=== PATIENT | male | born 1955 | race Caucasian/White ===

== ENCOUNTER 2017-01-20 15:49 | Outpatient (CLI) | payer MEDICARE, BC ==
[~2017-01-20] VITALS: Ht 167.6 cm; Wt 86.4 kg
[2017-01-20 16:07] VITALS: BP 99/69; PULSE 85; RESP 16; Ht 167.6 cm; Wt 86.4 kg
[2017-01-20] MEDS ORDERED: SEVE800T10 PO (16:27)
[2017-01-20] MEDS ORDERED: CARV12.598 PO (16:27)
[2017-01-20] MEDS ORDERED: [UNRECOGNIZED DRUG - CODE] PO (16:27)
[2017-01-20] MEDS ORDERED: CARV6.25 PO (16:27)
[2017-01-20] MEDS ORDERED: ASPI-664 PO (16:27)
--- NOTE | 2017-01-20 16:40 | PN ---
Date/Time of Note Date/Time of Note DATE: 01/20/17 TIME: 16:35 Outpatient Progress Note Chief Complaint A. fib with a high ventricular response/hypertension/pneumonia/hypertension/ anemia/CRF/insomnia HPI A. fib with high ventricular response/no chest pain, no PND orthopnea palpitation, patient was recently hospitalized, patient controlled, Hypertension/no headache or dizziness, lightheadedness, no local focal weakness, Pneumonia/patient has a pneumonia, patient on the Levaquin, no fever chills, no cough expectoration or hemoptysis, Anemia/no hematemesis melena, no ecchymoses or bruises or bleeding, CRF/patient has chronic renal failure, on hemodialysis, no nausea vomiting or pruritus, Insomnia/patient has insomnia, sleeps 1 or 2 hours a night, Review of Systems Const: No Fever, no chills, no Wt. loss, no Fatigue, normal appetite, no diaphoresis. Eyes: No pain, no discharge, no redness, no visual change, no foreign body. ENT: No pain, no bleeding, no congestion, no sore throat, no dysphagia, no discharge or rhinitis. Lymph: No adenopathy, no tender nodes, no lymphedema. Resp: No SOB, no cough, no sputum, no wheezing, no chest pain. CV: No chest pain, no palpitaions, no M[place]OR, no PND, no edema. GI: Normal appetite, no pain, no nausea, no vomiting, no diarrhea, no blood, no constipation. : No frequency, no urgency, no dysuria, no hematuria, no flank pain, no discharge, no bleeding. Musc: No bone/joint pain, no back pain, no neck pain, no knee pain, no restricted ROM. Skin: No rash, no skin lesions, no erythema, no laceration, no bruising, no pruritus. Neuro: No KENNY, no dizziness, no syncope, no seizure, no focal-weakness. Insomnia , Endo: No polyuria, no polydypsia, no dry-skin, no temp-intolerance. Psych: No hallucinations, no depression, no anxiety, no suicidal ideation. Ext: No edema, no pain, no ulcer, no weakness left upper arm AV fistula,. Physical Exam Vital Signs Date Time Temp Pulse Resp B/P Pulse Ox O2 Delivery O2 Flow Rate FiO2 01/20/17 16:07 98.6 85 16 99/69 96 Room Air General Appearance: A A 61 year-old male who appears well-developed, well- nourished, in no acute distress. HEENT: Head normocephalic, atraumatic. Pupils equal, round, reactive to light and accommodate. Sclerae are no jaundice. Nasal turbinates pink without erythema or nasal discharge. Mucous membranes pink and moist without lesions. Oropharynx clear without any exudate or discharge. NECK: Supple. Trachea midline, No thyromegaly, No cervical lymphadenopathy, No mass, No carotid bruits, No JVD, Carotid pulses 2+ bilaterally. PULMONARY: Clear to auscultaion bilaterally, No retractions, Chest expansion symmetric bilaterally, no rales, no ronchi, no dulness on percussion. CARDIAC: Normal SI and S2, iRegular rate and rythm, no murmur, gallop, or rub. GASTROINTESTINAL: Abdomen is soft, non-tender, Non Rigid, No distention, Positive bowel sounds x4 quadrants, Liver normal. SKIN: Warm, dry, no rash, no bruise, no echmosis. EXTREMITIES: Bilateral lower extremities normal, no edema, no phlabitus, pulse palpable, no contracture. Left upper arm AV fistula, MUSCULOSKELETAL: Spine Normal, Non-tender, Normal range of motion, No swelling, no deformity, no clubbing, or cyanosis, the patient has no edema to bilateral lower extremities, dorsalis pedis pulses palpable bilaterally. NEUROLOGIC: The patient is awake, alert, oriented, responding to yes/no questions appropriately, moving all extremities, cranial nerve intact, normal strenght, normal power, normal coordination, normal gait. Allergies Coded Allergies: No Known Drug Allergies (Verified Allergy, Unknown, 01/20/17) PMH A. fib/hypertension/hyp anemia/CRF/insomnia Social Hx No known allergies, Family Hx Noncontributory Assessment/Plan Impression A. fib with high ventricular response resolved/hypertension/pneumonia/anemia/CRF /insomnia Plan Patient education done, patient has all the medication, patient nicely controlled at present, Patient encouraged to follow with the primary care physician, Patient has insomnia, Ambien 5 mg p.o. at bedtime daily f 30 tablets, Medications Home Meds Reported Medications Sevelamer Hcl* (Renagel*) 800 Mg Tablet, 800 MG PO WITH MEALS, TAB 01/20/17 Diltiazem Hcl* (Cardizem*) 120 Mg Tablet, 120 MG PO Q8, TAB 01/20/17 Aspirin (Low Dose Aspirin) 81 Mg Tablet.dr, 81 MG PO DAILY, #30 TAB 01/20/17 Carvedilol* (Coreg*) 12.5 Mg Tablet, 12.5 MG PO BID, #60 TAB 01/20/17 Carvedilol* (Coreg*) 6.25 Mg Tablet, 6.25 MG PO BID, #60 TAB 01/20/17 NOELLE MCDONALD MD Jan 20, 2017 16:39
== END 2017-01-20 16:27 | disposition home or self-care (01) ==
LOC: DCC 15:49
PROVIDERS: ATTEND Internal Medicine
DX: I48.91 Unspecified atrial fibrillation (principal); J18.9 Pneumonia, unspecified organism; D64.9 Anemia, unspecified; G47.00 Insomnia, unspecified; I12.9 Hypertensive chronic kidney disease with stage 1 through stage 4 chronic kidney disease, or unspecified chronic kidney disease; N18.9 Chronic kidney disease, unspecified; Z99.2 Dependence on renal dialysis

== ENCOUNTER 2017-05-30 15:41 | Outpatient (CLI) | payer MEDICARE, BC ==
[~2017-05-30] VITALS: Ht 167.6 cm; Wt 85.0 kg
[~2017-05-30 15:41] MED LIST: ASPI-664 PO; CARV12.598 PO; CARV6.25 PO; SEVE800T10 PO; [UNRECOGNIZED DRUG - CODE] PO
[2017-05-30 15:49] VITALS: BP 139/87; PULSE 108; RESP 18; Ht 167.6 cm; Wt 85.0 kg
--- NOTE | 2017-05-30 16:11 | PN ---
Date/Time of Note Date/Time of Note DATE: 05/30/17 TIME: 16:07 Outpatient Progress Note Chief Complaint Chest pain/atrial fibrillation/CRF stage V/hypertension/hyperlipidemia/anemia/ tinnitus HPI Chest pain/patient was recently hospitalized with a chest pain, at present patient does not have any chest pain, no PND orthopnea, A. fib/patient had atrial fibrillation with a fast ventricular response, patient heart rate slightly above 100, no palpitation, no syncope, no dizziness, chronic renal failure stage V/patient has no nausea vomiting, on dialysis, Hypertension/denies any headache or dizziness, no nausea vomiting, Hyperlipidemia/no xanthoma, Anemia/no hematemesis melena, Tinnitus/patient has impaired hearing especially on the right ear, and patient also has constant tinnitus, Review of Systems Const: No Fever, no chills, no Wt. loss, no Fatigue, normal appetite, no diaphoresis. Eyes: No pain, no discharge, no redness, no visual change, no foreign body. ENT: No pain impaired hearing, and constant tinnitus,, no bleeding, no congestion, no sore throat, no dysphagia, no discharge or rhinitis. Lymph: No adenopathy, no tender nodes, no lymphedema. Resp: No SOB, no cough, no sputum, no wheezing, no chest pain. CV: No chest pain, no palpitaions, no M[place], no PND, no edema. GI: Normal appetite, no pain, no nausea, no vomiting, no diarrhea, no blood, no constipation. : No frequency, no urgency, no dysuria, no hematuria, no flank pain, no discharge, no bleeding. Musc: No bone/joint pain, no back pain, no neck pain, no knee pain, no restricted ROM. Skin: No rash, no skin lesions, no erythema, no laceration, no bruising, no pruritus. Neuro: No KENNY, no dizziness, no syncope, no seizure, no focal-weakness. Endo: No polyuria, no polydypsia, no dry-skin, no temp-intolerance. Psych: No hallucinations, no depression, no anxiety, no suicidal ideation. Ext: No edema, no pain, no ulcer, no weakness. Physical Exam Vital Signs Date Time Temp Pulse Resp B/P Pulse Ox O2 Delivery O2 Flow Rate FiO2 05/30/17 15:49 98.1 108 18 139/87 98 Room Air General Appearance: A 61 year-old male who appears well-developed, well- nourished, in no acute distress. HEENT: Head normocephalic, atraumatic. Pupils equal, round, reactive to light and accommodate. Sclerae are no jaundice. Nasal turbinates pink without erythema or nasal discharge. Mucous membranes pink and moist without lesions. Oropharynx clear without any exudate or discharge. Patient has constant tinnitus right ear, impaired hearing, NECK: Supple. Trachea midline, No thyromegaly, No cervical lymphadenopathy, No mass, No carotid bruits, No JVD, Carotid pulses 2+ bilaterally. PULMONARY: Clear to auscultaion bilaterally, No retractions, Chest expansion symmetric bilaterally, no rales, no ronchi, no dulness on percussion. CARDIAC: Normal SI and S2, IRegular rate and rythm, no murmur, gallop, or rub. GASTROINTESTINAL: Abdomen is soft, non-tender, Non Rigid, No distention, Positive bowel sounds x4 quadrants, Liver normal. SKIN: Warm, dry, no rash, no bruise, no echmosis. EXTREMITIES: Bilateral lower extremities normal, no edema, no phlabitus, pulse palpable, no contracture. MUSCULOSKELETAL: Spine Normal, Non-tender, Normal range of motion, No swelling, no deformity, no clubbing, or cyanosis, the patient has no edema to bilateral lower extremities, dorsalis pedis pulses palpable bilaterally. NEUROLOGIC: The patient is awake, alert, oriented, responding to yes/no questions appropriately, moving all extremities, cranial nerve intact, normal strenght, normal power, normal coordination, normal gait. Allergies Coded Allergies: No Known Drug Allergies (Verified Allergy, Unknown, 01/20/17) PMH No change Social Hx No change Family Hx No change Assessment/Plan Impression Chest pain resolved A. fib Chronic renal failure stage V Hypertension Hyperlipidemia Anemia Tinnitus Plan Patient education done about multiple disease, Patient has constant tinnitus in the ER, patient advised to use our Debrox clean the ear and will try to make appointment with ENT, Patient also has impaired hearing, maybe will need log check scaler to check his hearing, Control the blood pressure control the heart rate, discussed with the patient, control the cholesterol, patient has all the supply in medication, Patient encouraged to follow with the primary care physician, Medications Home Meds Reported Medications Sevelamer Hcl* (Renagel*) 800 Mg Tablet, 800 MG PO WITH MEALS, TAB 01/20/17 Diltiazem Hcl* (Cardizem*) 120 Mg Tablet, 120 MG PO Q8, TAB 01/20/17 Aspirin (Low Dose Aspirin) 81 Mg Tablet.dr, 81 MG PO DAILY, #30 TAB 01/20/17 Carvedilol* (Coreg*) 12.5 Mg Tablet, 12.5 MG PO BID, #60 TAB 01/20/17 Discontinued Reported Medications Carvedilol* (Coreg*) 6.25 Mg Tablet, 6.25 MG PO BID, #60 TAB 01/20/17 NOELLE MCDONALD MD May 30, 2017 16:11
== END 2017-05-30 16:49 | disposition home or self-care (01) ==
LOC: DCC 15:41
PROVIDERS: ATTEND Internal Medicine
DX: I12.0 Hypertensive chronic kidney disease with stage 5 chronic kidney disease or end stage renal disease (principal); N18.5 Chronic kidney disease, stage 5; E78.5 Hyperlipidemia, unspecified; D64.9 Anemia, unspecified; I48.91 Unspecified atrial fibrillation; H93.19 Tinnitus, unspecified ear
CPT/HCPCS: G0463

== ENCOUNTER 2018-08-24 12:15 | Inpatient (IN) | END 2018-08-25 18:12 | disposition home or self-care (01) | DRG 640 ==

== ENCOUNTER → 2018-08-24 | Day surgery (SDC) | END | disposition home or self-care (01) ==

== ENCOUNTER 2018-10-30 17:17 | Inpatient (IN) | payer MEDICARE, BC ==
[~2018-10-30] VITALS: Ht 167.6 cm; Wt 79.4 kg
[~2018-10-30 17:17] MED LIST changes: -ASPI-664 PO; -CARV6.25 PO; +SEVE0.8P PO; -SEVE800T10 PO; -[UNRECOGNIZED DRUG - CODE] PO
[2018-10-30 17:20] VITALS: Ht 167.6 cm; Wt 79.4 kg
[2018-10-30] MEDS ORDERED: SODIUM CHLORIDE 0.9% 1L BAG IV* STA (17:55)
[2018-10-30] MEDS ORDERED: ALBUTEROL 0.5% (NEB) 2.5 MG/0.5 ML AMP INH STA (17:58)
[2018-10-30] MEDS ORDERED: IPRATROPIUM (NEB) 0.5 MG/2.5 ML AMP INH STA (17:58)
[2018-10-30] MEDS ORDERED: METHYLPREDNISOLONE 125 MG INJ IV STA (17:58)
[2018-10-30] MEDS ORDERED: IBUPROFEN 600 MG TAB PO ONE (18:00)
[2018-10-30] MEDS ORDERED: CEFTRIAXONE 1 GM/50 ML (PMX) 50 ML IVPB ONE (18:00)
--- NOTE | 2018-10-30 18:18 | ERD ---
ER Documentation Chief Complaint Chief Complaint SOB-wheezing hx of COPD, sent by PMD to r/o PNA HPI 63-year-old man referred here by his medical office for possible pneumonia. Patient has a history of COPD and states he has had a cough, wheezing, shortness of breath, fever times 3 days. He also has end-stage kidney disease and is hemodialysis dependent, has cirrhosis and recurrent ascites as well. Patient states he has had increasing abdominal distention. He denies chest pain, no blood per rectum or melena, no vomiting or diarrhea ROS All systems reviewed and are negative except as per history of present illness. Medications Home Meds Reported Medications Sevelamer Carbonate* (Renvela*) 0.8 Gm Powd.pack, 0.8 GM PO WITH MEALS, PACKET 08/24/18 Carvedilol* (Coreg*) 12.5 Mg Tablet, 12.5 MG PO BID, #60 TAB 01/20/17 Allergies Allergies: Coded Allergies: No Known Drug Allergies (Verified Allergy, Unknown, 01/20/17) PMhx/Soc End-stage kidney disease, history of alcoholic cirrhosis and recurrent ascites, anemia, hypertension, COPD, atrial fibrillation History of Surgery: Yes (BILATERAL CATARACT, LEFT UPPER ARM FISTULA ) Anesthesia Reaction: No Hx Neurological Disorder: No Hx Respiratory Disorders: No Hx Cardiac Disorders: No Hx Psychiatric Problems: No Hx Miscellaneous Medical Probl: Yes (KIDNEY FAILURE/ESRD ON HD , LIVER FAILURE) Hx Alcohol Use: No Hx Substance Use: No Hx Tobacco Use: No FmHx Family History: diabetes Physical Exam Vitals Vital Signs Date Temp Pulse Resp B/P (MAP) Pulse Ox O2 O2 Flow FiO2 Time Delivery Rate 10/30/18 118 33 97 21 18:02 10/30/18 97.5 119 21 165/105 97 17:20 (125) Physical Exam GENERAL: Well-developed, dyspneic, afebrile HEENT: Moist mucous membranes, pink conjunctiva, no cervical spine tenderness or step-off deformities, no goiter, no jaundice or icterus, extraocular movements intact without pain. NEURO: Alert and oriented 2, patient is confused he can follow simple commands and answer simple questions, no focal deficits or facial asymmetry, moving all extremities CARDIAC: Tachycardic and regular, no murmurs rubs or gallops LUNGS: Poor breath sounds bilaterally, crackles bilaterally, scattered wheezes ABDOMEN: Soft protuberant abdomen without guarding or rigidity SKIN: Warm and dry to touch, no abrasions, contusions, or hematomas, no lacerations, no ecchymosis, no target lesions, and without ulcers EXTREMITIES: No clubbing cyanosis, 1+ pitting edema in the lower extremities bilaterally, calves are bilaterally symmetrical, no Homans sign, no popliteal cord sign. Distal pulses equal and bilateral PSYCH: Confused otherwise calm Result Diagram: 10/30/18182110/30/181821 Results 24 hrs Laboratory Tests Test 10/30/18 18:22 10/30/18 18:23 White Blood Count 5.1 10^3/ul Red Blood Count 3.78 10^6/ul Hemoglobin 10.9 g/dl Hematocrit 34.2 % Mean Corpuscular Volume 90.5 fl Mean Corpuscular Hemoglobin 28.8 pg Mean Corpuscular Hemoglobin Concent 31.9 g/dl Red Cell Distribution Width 15.7 % Platelet Count 83 10^3/UL Mean Platelet Volume 10.5 fl Immature Granulocytes % 0.600 % Neutrophils % 86.9 % Lymphocytes % 6.8 % Monocytes % 5.3 % Eosinophils % 0.0 % Basophils % 0.4 % Nucleated Red Blood Cells % 0.0 /100WBC Immature Granulocytes # 0.030 10^3/ul Neutrophils # 4.5 10^3/ul Lymphocytes # 0.4 10^3/ul Monocytes # 0.3 10^3/ul Eosinophils # 0.0 10^3/ul Basophils # 0.0 10^3/ul Nucleated Red Blood Cells # 0.0 10^3/ul Prothrombin Time 13.8 Sec Prothrombin Time Ratio 1.1 INR International Normalized Ratio 1.05 Activated Partial Thromboplast Time 31.6 Sec Sodium Level 140 mmol/L Potassium Level 6.0 mmol/L Chloride Level 97 mmol/L Carbon Dioxide Level 25 mmol/L Anion Gap 18 Blood Urea Nitrogen 83 mg/dl Creatinine 9.15 mg/dl Est Glomerular Filtrat Rate mL/min 6 mL/min Glucose Level 97 mg/dl Calcium Level 7.3 mg/dl Total Bilirubin 0.0 mg/dl Direct Bilirubin 0.00 mg/dl Indirect Bilirubin 0.0 mg/dl Aspartate Amino Transf (AST/SGOT) 31 IU/L Alanine Aminotransferase (ALT/SGPT) 26 IU/L Alkaline Phosphatase 112 IU/L Ammonia < 9 umol/l Troponin I 0.013 ng/ml B-Type Natriuretic Peptide Pending Total Protein 6.3 g/dl Albumin 3.6 g/dl Globulin 2.70 g/dl Albumin/Globulin Ratio 1.33 Lipase 179 U/L POC Venous Lactate 1.4 mmol/L Current Medications Medications Dose Sig/[place]gett Start Time Status Last (Trade) Ordered Route PRN Stop Time Admin Dose Reason Admin Sodium 1,000 ml BOLUS OVER 2 10/30/18 DC 10/30/18 Chloride HOURS STAT 17:55 18:12 (NS) IV* 10/30/18 17:59 Albuterol 10 mg ONCE STAT 10/30/18 DC 10/30/18 (Proventil INH 17:58 18:02 0.5% (Neb)) 10/30/18 17:59 Ipratropium 1 mg ONCE STAT 10/30/18 DC 10/30/18 [place] INH 17:58 18:02 (Atrovent 10/30/18 0.02% 17:59 (Neb)) 125 mg ONCE STAT 10/30/18 DC 10/30/18 Methylprednis IV 17:58 18:11 olone Sodium 10/30/18 Succinate 17:59 (Solu-Medrol) Ibuprofen 600 mg ONCE ONCE 10/30/18 DC 10/30/18 (Motrin) PO 18:00 18:12 10/30/18 18:01 Ceftriaxone 50 ml @ ONCE ONCE 10/30/18 DC 10/30/18 Sodium 100 mls/hr IVPB 18:00 18:12 10/30/18 18:29 Azithromycin 250 ml @ ONCE ONCE 10/30/18 10/30/18 250 mls/hr IVPB 18:30 18:50 10/30/18 19:29 Lactulose 20 gm ONCE ONCE 10/30/18 DC 10/30/18 (Enulose) PO 18:30 18:48 10/30/18 18:31 Oseltamivir 150 mg ONCE ONCE 10/30/18 Phosphate PO 19:30 (Tamiflu) 10/30/18 19:31 Dextrose 50 ml ONCE STAT 10/30/18 DC (D50w IV 19:19 Syringe) 10/30/18 19:21 Insulin 10 unit ONCE STAT 10/30/18 DC Human IVP 19:19 Regular 10/30/18 (Humulin R) 19:21 Dextrose ONCE PRN 10/30/18 (D50w IV DECREASED 19:30 Syringe) GLUCOSE Furosemide 20 mg ONCE ONCE 10/30/18 (Lasix) IV 19:30 10/30/18 19:31 Procedures/MDM IV line was established patient was placed on school lunch monitor rhythm strip revealed a narrow complex tachycardia at 110 bpm with upright P and T waves. Patient was afebrile, although blood and urine cultures have been ordered results are pending I will follow-up EKG performed, read by me revealed an atrial fibrillation with rapid ventricular rate at 111 bpm, normal axis, narrow QRS complex, no concerning ST elevations or depressions noted. I administered 1 L normal saline IV, albuterol 10 mg via nebulizer, ipratropium 1 mg via nebulizer, methylprednisolone 125 mg IV x1, ibuprofen 600 mg p.o. x1, and ceftriaxone 1 g IV and then azithromycin 500 mg IV x1 I also administered lactulose 20 g p.o. for suspected hyperammonemia pending level due to his mild encephalopathy although this may be patient's normal baseline mental status 1 view chest x-ray performed, read by me reveals atelectatic changes bilaterally, left upper lobe infiltrate, no pneumothorax CBC was unremarkable, electrolytes reveal hyperkalemia at 6 and end-stage kidney disease, liver function tests normal, troponin negative, lactic acid level low, influenza A was positive. Ammonia level was low, BNP is pending. I administered albuterol already for patient's initial symptoms although this should also help with his hyperkalemia, I also ordered dextrose and regular insulin as well as furosemide for hyperkalemia. Patient received Tamiflu 150 mg p.o. x1. Critical Care: Time: 42 minutes, this was time separate from other billable procedures. Treatments/Evaluations: Close monitoring and treatment of unstable vital signs, cardiorespiratory, and neurologic status, while maintaining tight balance of fluid, respiratory, and cardiac interventions. Patient admitted to telemetry setting for continued medical management and antibiotic therapy Departure Diagnosis: Primary Impression: Ascites Ascites type: due to alcoholic cirrhosis Qualified Codes: K70.31 - Alcoholic cirrhosis of liver with ascites Additional Impressions: Pneumonia Pneumonia type: due to unspecified organism Laterality: left Lung location: upper lobe of lung Qualified Codes: J18.1 - Lobar pneumonia, unspecified organism Acute hyperkalemia Influenza A End stage kidney disease Atrial fibrillation with RVR Condition: CHRISTIE Parks MD Oct 30, 2018 18:18
[2018-10-30] MEDS ORDERED: AZITHROMYCIN 500MG/NS (PMX) 250 ML IVPB ONE (18:30)
[2018-10-30] MEDS ORDERED: LACTULOSE 30ML CUP PO ONE (18:30)
[2018-10-30] MEDS ORDERED: INSULIN REGULAR, HUMAN 100 UNIT/1 ML 3ML VIAL IVP STA (19:19)
[2018-10-30] MEDS ORDERED: DEXTROSE 50% 50 ML SYRINGE IV STA (19:19)
[2018-10-30] MEDS ORDERED: DEXTROSE 50% 50 ML SYRINGE IV PRN (19:30)
[2018-10-30] MEDS ORDERED: OSELTAMIVIR 75 MG CAP PO ONE (19:30)
[2018-10-30] MEDS ORDERED: FUROSEMIDE 20 MG INJ IV ONE (19:30)
[2018-10-30] MEDS ORDERED: ALBUTEROL 0.083% (NEB) 2.5 MG/3 ML AMP NEB STA (20:02)
[2018-10-30 20:40] VITALS: BP 121/88; PULSE 116; RESP 26
[2018-10-30 20:46] VITALS: PULSE 117
--- NOTE | 2018-10-30 21:00 | NUR ---
Pt. admitted from ER for SOB, , cough. Pt. positive for influenza A, CXR=L sided Pneumonia, + Ascitis. Hx of ESRD, HD,HPN, Liver failure ,COPD. Last HD was 10/29/18. Pt. is A/O X4, not in pain , slight resp distress RR=26, wheezing, RA O2 sat 95%, Pt. in afib at 116 h. rate. Pt. is steady on his feet. Needs attended to.
--- NOTE | 2018-10-30 23:57 | HP ---
Date/Time of Note Date/Time of Note DATE: 10/30/18 TIME: 23:57 Assessment/Plan VTE Prophylaxis Pharmacological prophylaxis: heparin Lines/Catheters IV Catheter Type (from Nrsg): Saline Lock Assessment/Plan Assessment/Plan 1. Influenza A positive -Tamiflu 2. COPD exacerbation: Currently feeling well -Supplemental oxygen, bronchodilators, as needed steroid 3. ESRD on HD: Nephrology for dialysis 4. Hyperkalemia: Status post treatment in the ER. See #3 5. Decompensated alcoholic liver cirrhosis. Patient receives frequent paracentesis 6. Hypertension: Continue home meds. Adjust as needed Result Diagram: 10/30/18 1822 10/30/18 1822 Results 24hrs Laboratory Tests Test 10/30/18 18:22 10/30/18 18:23 10/30/18 19:52 10/30/18 20:17 White Blood 5.1 Count Red Blood Count 3.78 L Hemoglobin 10.9 L Hematocrit 34.2 L Mean Corpuscular 90.5 Volume Mean Corpuscular 28.8 L Hemoglobin Mean Corpuscular 31.9 L Hemoglobin Bia nt Red Cell 15.7 H Distribution Width Platelet Count 83 #L Mean Platelet 10.5 H Volume Immature 0.600 H Granulocytes % Neutrophils % 86.9 H Lymphocytes % 6.8 L Monocytes % 5.3 Eosinophils % 0.0 Basophils % 0.4 Nucleated Red 0.0 Blood Cells % Immature 0.030 Granulocytes # Neutrophils # 4.5 Lymphocytes # 0.4 L Monocytes # 0.3 Eosinophils # 0.0 Basophils # 0.0 Nucleated Red 0.0 Blood Cells # Prothrombin Time 13.8 Prothrombin Time 1.1 Ratio INR 1.05 International Normalized Ratio Activated 31.6 Partial Thrombop last Time Sodium Level 140 Potassium Level 6.0 H Chloride Level 97 Carbon Dioxide 25 Level Anion Gap 18 H Blood Urea 83 H Nitrogen Creatinine 9.15 H Est Glomerular 6 L Filtrat Rate mL/min Glucose Level 97 Calcium Level 7.3 L Total Bilirubin 0.0 L Direct Bilirubin 0.00 Indirect 0.0 Bilirubin Aspartate Amino 31 Transf (AST/SGOT ) Alanine 26 Aminotransferase (ALT/SGPT) Alkaline 112 Phosphatase Ammonia < 9 L Troponin I 0.013 B-Type > 316864 H Natriuretic Peptide Total Protein 6.3 Albumin 3.6 Globulin 2.70 Albumin/Globulin 1.33 Ratio Lipase 179 POC Venous 1.4 Lactate Bedside Glucose 134 174 Test 10/30/18 22:28 Lactic Acid 1.4 Level HPI/ROS Admit Date/Time Admit Date/Time Oct 30, 2018 at 19:19 Hx of Present Illness This is a 63-year-old male with a history of hypertension, ESRD on HD, COPD, decompensated alcoholic liver cirrhosis with frequent paracentesis. Patient was sent from clinic for evaluation of shortness of breath, wheezing and cough. Cough has been dry for the most part. In the ER, he was positive for influenza A. Chest x-ray shows Findings compatible with left-sided pneumonia, probably in the superior segment of the left lower lobe. Patient was last admitted here a bout 2 months ago for hyperkalemia. At that time paracentesis, which patient has been receiving almost on a weekly basis was not able to be performed because potassium was 6.3. Today, he presented with a potassium 6. Currently patient is feeling well. His abdomen is distended, but said with almost always like this. Last paracentesis was a week ago. PMH/Family/Social Past Medical History PMH/Family/Social Past Medical History Medical History: other (see hpi) Coded Allergies: No Known Drug Allergy (Verified Allergy, Unknown, 06/17/16) Past Surgical History Past Surgical Hx: other (see hpi) Family History Significant Family History: no pertinent family hx Social History Alcohol Use: other Smoking Status: Unknown if ever smoked Drug Use: other Medications Current Medications Dextrose (D50w Syringe) ONCE PRN IV DECREASED GLUCOSE; Start 10/30/18 at 19:30 Coded Allergies: No Known Drug Allergies (Verified Allergy, Unknown, 01/20/17) Social History Smoking Status: Never smoker Exam/Review of Systems Vital Signs Vitals Vital Signs Date Temp Pulse Resp B/P (MAP) Pulse Ox O2 O2 Flow FiO2 Time Delivery Rate 10/30/18 117 20:46 10/30/18 25 97 21 20:17 10/30/18 125/85 Room Air 19:17 (98) 10/30/18 97.5 17:20 Exam Constitutional: alert, oriented, well developed Eyes: EOMI, PERRL Respiratory: clear to auscultation, normal air movement Cardiovascular: other (Tachycardic regular rhythm) Gastrointestinal: distended Extremities: normal pulses CLINT SHEN MD Oct 30, 2018 23:57
[2018-10-31] VITALS (23 sets, daily range): BP systolic 128–167; BP diastolic 76–99; PULSE 88–116; RESP 18–24
[2018-10-31] MEDS ORDERED: ACETAMINOPHEN 325 MG TAB PO PRN
[2018-10-31] MEDS ORDERED: ALBUTEROL/IPRATROPIUM (NEB) 3 ML AMP HHN PRN
[2018-10-31] MEDS ORDERED: NACL 0.9% 3 ML SYG IV SCH
[2018-10-31] MEDS ORDERED: HYDROCODONE/APAP (5/325) TAB PO PRN ×2
[2018-10-31] MEDS ORDERED: ONDANSETRON 4 MG INJ IV PRN
--- NOTE | 2018-10-31 07:01 | NUR ---
Pt. s SOB improved a few hours after admission, from 28 - 22/ min of RR. Saturation on RA was 95-97%. Afib, 104-107, normal V/S. Had a quiet night,no complaints, steady on his feet.
[2018-10-31] MEDS: SEVELAMER CARBONATE 0.8 GM PKT PO SCH ×3 (07:56→17:37)
--- NOTE | 2018-10-31 08:57 | NUR ---
CALLED DA CHEI[facility] JOHN, BRITT GAVE CONFIRMATION NUMBER [id number]. TO BE DONE THIS MORNING.
--- NOTE | 2018-10-31 09:47 | PN ---
Date/Time of Note Date/Time of Note DATE: 10/31/18 TIME: 09:47 Assessment/Plan VTE Prophylaxis SCD applied (from Nsg): Yes Pharmacological prophylaxis: NA/contraindicated Pharm contraindication: liver dx Lines/Catheters IV Catheter Type (from Nrs): Saline Lock Assessment/Plan Hospital Course SUBJECTIVE: Lying in bed. No fevers. No cough, wheezing. On room air oxygenation. Abdomen distended, no pain, nausea or vomiting. OBJECTIVE: Vital signs-see below PHYSICAL EXAM: Constitutional: Well-developed, adequately built, lying in bed comfortably. Psych: nl mood/affect, no complaints Head: atraumatic, normocephalic Eyes: nl conjunctiva, nl sclera ENMT: mucosa pink and moist, nl external ears & nose Neck: non-tender, supple Respiratory: clear to auscultation, normal air movement Cardiovascular: nl pulses, regular rate and rhythm Gastrointestinal: Distended abdomen with ascites. Non-tender, bowel sounds active in all 4 quadrants. Musculoskeletal/extremities: nl extremities to inspection, motor strength equal bilaterally, no focal deficit. Normal pulses,no cyanosis, no edema. Neurological: Alert oriented 3,nl speech, nl strength Skin: nl turgor ASSESSMENT/PLAN: 63-year-old male with a history of decompensated alcoholic liver cirrhosis, ascites, weekly paracentesis, ESRD on hemodialysis, was brought in with subjective fevers, nonproductive cough, shortness of breath and wheezing times 3-day duration. 1. Influenza A. -On Tamiflu therapy -Supportive care 2. Community-acquired pneumonia -Start Zithromax and ceftriaxone. -Bronchodilators as needed 3. Decompensated alcoholic liver cirrhosis with ascites. -Ultrasound-guided paracentesis with fluid studies ordered. -Monitor electrolyte levels. -HD for UF. In light of hyperkalemia, will hold off to Aldactone therapy. -Lactulose maintenance dose for prophylactic hepatic encephalopathy. -Ammonia level -GI consult 4. ESRD on hemodialysis -Nephrology following and dialysis per nephrology team. -Monitor renal function. 5. Hyperkalemia with ESRD -Hemodialysis per nephrology team. 6. Anemia of ESRD. -Stable H&H. -We will consider Epogen if indicated. 7. Pancytopenia of liver disease. -Currently no indication for transfusion. -Monitor 8. Hypertension -Stable. Continue antihypertensives. DVT prophylaxis: SCDs PUD prophylaxis: Not indicated CODE STATUS: Full code Diet: Renal/2 g sodium diet. Disposition: Continue current medical management. Await for clinical improvement. Patient is seen in collaboration with Dr. Stafford. Result Diagram: 10/31/18 0458 10/31/18 0458 Results 24hrs Laboratory Tests Test 10/30/18 18:22 10/30/18 18:23 10/30/18 19:52 10/30/18 20:17 White Blood 5.1 Count Red Blood Count 3.78 L Hemoglobin 10.9 L Hematocrit 34.2 L Mean Corpuscular 90.5 Volume Mean Corpuscular 28.8 L Hemoglobin Mean Corpuscular 31.9 L Hemoglobin Bia nt Red Cell 15.7 H Distribution Width Platelet Count 83 #L Mean Platelet 10.5 H Volume Immature 0.600 H Granulocytes % Neutrophils % 86.9 H Lymphocytes % 6.8 L Monocytes % 5.3 Eosinophils % 0.0 Basophils % 0.4 Nucleated Red 0.0 Blood Cells % Immature 0.030 Granulocytes # Neutrophils # 4.5 Lymphocytes # 0.4 L Monocytes # 0.3 Eosinophils # 0.0 Basophils # 0.0 Nucleated Red 0.0 Blood Cells # Prothrombin Time 13.8 Prothrombin Time 1.1 Ratio INR 1.05 International Normalized Ratio Activated 31.6 Partial Thrombop last Time Sodium Level 140 Potassium Level 6.0 H Chloride Level 97 Carbon Dioxide 25 Level Anion Gap 18 H Blood Urea 83 H Nitrogen Creatinine 9.15 H Est Glomerular 6 L Filtrat Rate mL/min Glucose Level 97 Calcium Level 7.3 L Total Bilirubin 0.0 L Direct Bilirubin 0.00 Indirect 0.0 Bilirubin Aspartate Amino 31 Transf (AST/SGOT ) Alanine 26 Aminotransferase (ALT/SGPT) Alkaline 112 Phosphatase Ammonia < 9 L Troponin I 0.013 B-Type > 349030 H Natriuretic Peptide Total Protein 6.3 Albumin 3.6 Globulin 2.70 Albumin/Globulin 1.33 Ratio Lipase 179 POC Venous 1.4 Lactate Bedside Glucose 134 174 Test 10/30/18 22:28 10/31/18 04:58 Lactic Acid 1.4 Level White Blood 3.1 #L Count Red Blood Count 3.61 L Hemoglobin 10.4 L Hematocrit 31.9 L Mean Corpuscular 88.4 Volume Mean Corpuscular 28.8 L Hemoglobin Mean Corpuscular 32.6 Hemoglobin Bia nt Red Cell 15.3 H Distribution Width Platelet Count 76 L Mean Platelet 10.5 H Volume Immature 0.700 H Granulocytes % Neutrophils % 87.8 H Lymphocytes % 8.2 L Monocytes % 3.3 Eosinophils % 0.0 Basophils % 0.0 Nucleated Red 0.0 Blood Cells % Immature 0.020 Granulocytes # Neutrophils # 2.7 Lymphocytes # 0.3 L Monocytes # 0.1 L Eosinophils # 0.0 Basophils # 0.0 Nucleated Red 0.0 Blood Cells # Sodium Level 140 Potassium Level 5.7 H Chloride Level 100 Carbon Dioxide 20 L Level Anion Gap 20 H Blood Urea 93 H Nitrogen Creatinine 9.59 H Est Glomerular 6 L Filtrat Rate mL/min Glucose Level 161 Calcium Level 7.2 L Magnesium Level 2.5 Total Bilirubin 0.0 L Direct Bilirubin 0.00 Indirect 0.0 Bilirubin Aspartate Amino 32 Transf (AST/SGOT ) Alanine 21 Aminotransferase (ALT/SGPT) Alkaline 98 Phosphatase Total Protein 5.9 L Albumin 3.3 Globulin 2.60 Albumin/Globulin 1.26 Ratio Exam/Review of Systems Vital Signs Vitals Vital Signs Date Temp Pulse Resp B/P (MAP) Pulse Ox O2 O2 Flow FiO2 Time Delivery Rate 10/31/18 97.5 98 20 139/90 97 Room Air 08:08 (106) 10/30/18 21 20:17 Intake and Output 10/30/18 10/30/18 10/31/18 1515:00 23:00 07:00 IntakeIntake Total 560 ml OutputOutput Total 0 ml BalanceBalance 560 ml Medications Medications Current Medications Dextrose (D50w Syringe) ONCE PRN IV DECREASED GLUCOSE; Start 10/30/18 at 19:30 IV Flush (NS 3 ml) 3 ml PER PROTOCOL IV ; Start 10/31/18 at 00:00 Ondansetron HCl (Zofran Inj) 4 mg Q6H PRN IV NAUSEA AND/OR VOMITING; Start 10/31/18 at 00:00 Acetaminophen (Tylenol Tab) 650 mg Q6H PRN PO PAIN LEVEL 1-3 OR FEVER; Start 10/31/18 at 00:00 Acetaminophen/ Hydrocodone Bitart ([place] (5/325)) 1 tab Q6H PRN PO PAIN LEVEL 4-6; Start 10/31/18 at 00:00 Acetaminophen/ Hydrocodone Bitart ([place] (5/325)) 2 tab Q6H PRN PO PAIN LEVEL 7-10; Start 10/31/18 at 00:00 Albuterol/ Ipratropium (Duoneb) 3 ml Q2H RESP THERAPY PRN HHN SHORTNESS OF BREATH; Start 10/31/18 at 00:00 Carvedilol (Coreg) 12.5 mg BID PO ; Start 10/31/18 at 09:00 Sevelamer Carbonate (Renvela) 0.8 gm WITH MEALS PO ; Start 10/31/18 at 08:00 JOSEPH KINCAID NP Oct 31, 2018 09:47
--- NOTE | 2018-10-31 10:10 | CONS ---
DATE OF ADMISSION: 10/30/2018 DATE OF CONSULTATION: TYPE OF CONSULTATION: Nephrology. REASON FOR CONSULTATION: End-stage renal disease, hyperkalemia. REQUESTING PHYSICIAN: Jc Shen MD. HISTORY OF PRESENT ILLNESS: This is a 63-year-old male with a past medical history of end-stage loren l disease on dialysis Tuesday, Tuesday, Tuesday with access left AV fistula. Last hemodialysis was . The patient also has history of liver disease, possible cirrhosis, hypertension, anemia, mi neral bone disorder who presents to [facility] with shortness of breath, cough and wheeze. The patient in the emergency room was noted to be positive for influenza A. Chest x-ray show ed findings compatible with left-sided pneumonia. The patient in the emergency room was started on a ntibiotics and Tamiflu and admitted to telemetry for evaluation. Upon my evaluation of the patient at this time, he is currently stable. Denies any nausea, vomiting or any chest pain. PAST MEDICAL HISTORY: As stated above, history of end-stage renal disease, anemia, hypertension, his tory of liver disease. PAST SURGICAL HISTORY: Status post AV fistula. FAMILY HISTORY: No family history of kidney disease. SOCIAL HISTORY: Does not drink, smoke or do drugs. MEDICATIONS: Reviewed. REVIEW OF SYSTEMS: A 14-point review of systems conducted. Pertinent positives stated in HPI, other torres negative. PHYSICAL EXAMINATION: VITAL SIGNS: Blood pressure is 144/85, respirations 16, pulse 98, temperature 98.6. HEENT: Head is normocephalic. NECK: Supple. HEART: Regular rate. LUNGS: Show diminished breath sounds at the base. Positive rhonchi. ABDOMEN: Soft, nontender to palpation without rebound or guarding. EXTREMITIES: Negative for clubbing, cyanosis, no edema. DERMATOLOGIC: No rashes. MUSCULOSKELETAL: No joint effusions. NEUROLOGIC: No focal deficits. MEDICATIONS: The patient's medications have been reviewed. LABORATORY DATA: From 10/31/2018 shows a white count 3.1, hemoglobin 10.4, platelet count is 76. So dium 140, potassium 5.7, bicarbonate 20, BUN 93, creatinine 9.59. ASSESSMENT AND PLAN: This is a 63-year-old male who presents with: 1. End-stage renal disease. Plan is for dialysis today. We will dialyze for 3 hours and 2k bath, c alcium 2.5, ultrafiltrate as tolerated. 2. Hyperkalemia. The patient will be dialyzed on a low potassium bath. Continue renal diet. 3. Anemia. Continue to monitor hemoglobin and hematocrit levels. Will give Epogen with hemodialysi s as needed. 4. Mineral bone disorder, monitor calcium and phosphorus levels. Continue phos binders. 5. History of liver disease. Continue medical management. 6. Sepsis secondary to influenza A. Continue Tamiflu. Continue antibiotic therapy. 7. COPD exacerbation. Continue supplemental oxygen, bronchodilators. 8. Hypertension. Continue current blood pressure regimen. Continue ultrafiltration dialysis. Thank you, Dr. Shen for this interesting consult. It will be a pleasure to follow patient with you t satnamout the hospital course. Dictated By: SAMMI ALBERT DO NR/NTS Conf#: [id number] DID#: [id number] CC: JC SHEN MD;*EndCC*
[2018-10-31] MEDS: predniSONE 20 MG TAB PO SCH (10:30)
[2018-10-31] MEDS ORDERED: LIDOCAINE 1% (MPF) 5 ML VIAL ONE (11:46)
--- NOTE | 2018-10-31 11:49 | NUR ---
3600 ML SEROUS FLUID ASPIRATED BY DR. ADKINS AND SEND TO LAB PT TOLERATED PROCEDURE WELL WITHOUT COMPLICATIONS
[2018-10-31] MEDS: ALBUTEROL/IPRATROPIUM (NEB) 3 ML AMP HHN SCH ×2 (13:00→19:56)
[2018-10-31] MEDS: CEFTRIAXONE 1 GM/50 ML (PMX) 50 ML IVPB SCH (17:37)
[2018-10-31] MEDS: AZITHROMYCIN 500MG/NS (PMX) 250 ML IVPB SCH (18:20)
--- NOTE | 2018-10-31 18:58 | NUR ---
EOSS: PT WAS ADMITTED LAST NIGHT. FLUID OVERLOAD NOTED. DR ALBERT CONSULTED .HD ORDERED AND DONE THIS PM. PARACENTESIS DONE IN RADIOLOGY THIS AM.ALL NEEDS MET.CONTINUE POC.
[2018-11-01] VITALS (11 sets, daily range): BP systolic 98–138; BP diastolic 70–88; PULSE 79–121; RESP 20
[2018-11-01] MEDS: ALBUTEROL/IPRATROPIUM (NEB) 3 ML AMP HHN SCH ×4 (01:08→21:44)
--- NOTE | 2018-11-01 06:12 | NUR ---
Pt. had temperature of 99 - 99.9 oral, no complaints, no sob, slept good, afib controlled, normal V/S. no urine output, had 1 bowel movement.
[2018-11-01] MEDS: SEVELAMER CARBONATE 0.8 GM PKT PO SCH ×3 (08:04→17:30)
[2018-11-01] MEDS: LACTULOSE 30ML CUP PO SCH (08:05)
[2018-11-01] MEDS: predniSONE 20 MG TAB PO SCH (08:05)
[2018-11-01] MEDS ORDERED: FUROSEMIDE 40 MG TAB PO SCH (09:00)
--- NOTE | 2018-11-01 09:01 | PN ---
DATE: 11/01/2018 SUBJECTIVE: The patient had hemodialysis yesterday, tolerated well. No other events noted. OBJECTIVE: VITAL SIGNS: Blood pressure is 138/87, respirations 20, pulse 102, temperature 99.4. HEENT: Head is normocephalic. NECK: Supple. HEART: Regular rate. LUNGS: Show diminished breath sounds at the base. ABDOMEN: Soft, nontender to palpation. No rebound or guarding. EXTREMITIES: Negative for clubbing, cyanosis, no edema. DERMATOLOGIC: No rashes. MUSCULOSKELETAL: No joint effusion. NEUROLOGIC: No change in exam. MEDICATIONS: Reviewed. LABORATORY DATA: Shows sodium 138, potassium 4.8, BUN 65, creatinine 7.05. White count 5.3, hemoglo bin 10.5, platelet count is 100. ASSESSMENT AND PLAN: 1. End-stage renal disease. The patient had hemodialysis yesterday, tolerated well. Plan for dialy sis again tomorrow. 2. Hyperkalemia, improved. Continue dialysis on a low potassium bath. 3. Anemia. Continue to monitor hemoglobin and hematocrit levels. Will give Epogen with hemodialysi s as needed. 4. Mineral bone disorder, monitor calcium and phosphorus levels. Continue phosphate binders. 5. History of liver disease, cirrhosis. Continue to monitor. 6. Sepsis secondary to influenza. Continue Tamiflu, antibiotic therapy. 7. Chronic obstructive pulmonary disease exacerbation. Continue current medical regimen. 8. Hypertension. Continue current blood pressure regimen. Continue ultrafiltration dialysis. Dictated By: SAMMI MARTINEZ/NTS Conf#: [id number] DID#: [id number] CC: CLINT SHEN MD;*EndCC*
--- NOTE | 2018-11-01 10:35 | PN ---
Date/Time of Note Date/Time of Note DATE: 11/01/18 TIME: 10:27 Assessment/Plan VTE Prophylaxis Risk score (from Ns)>0 risk: 3 SCD applied (from Ns): Yes Pharmacological prophylaxis: NA/contraindicated Pharm contraindication: liver dx Lines/Catheters [facility] Saline Lock Assessment/Plan Hospital Course SUBJECTIVE: Patient had paracentesis. He is feeling much better today. Tolerating diet. Patient has been having on and off low-grade fevers. OBJECTIVE: Vital signs-see below PHYSICAL EXAM: Constitutional: Well-developed, adequately built, lying in bed comfortably. Psych: nl mood/affect, no complaints Head: atraumatic, normocephalic Eyes: nl conjunctiva, nl sclera ENMT: mucosa pink and moist, nl external ears & nose Neck: non-tender, supple Respiratory: clear to auscultation, normal air movement Cardiovascular: nl pulses, regular rate and rhythm Gastrointestinal: Distended abdomen with ascites. Non-tender, bowel sounds active in all 4 quadrants. Musculoskeletal/extremities: nl extremities to inspection, motor strength equal bilaterally, no focal deficit. Normal pulses,no cyanosis, no edema. Neurological: Alert oriented 3,nl speech, nl strength Skin: nl turgor ASSESSMENT/PLAN: 63-year-old male with a history of decompensated alcoholic liver cirrhosis, ascites, weekly paracentesis, ESRD on hemodialysis, was brought in with sub jective fevers, nonproductive cough, shortness of breath and wheezing times 3- day duration. 1. Influenza A. -s/p tamiflu 150 in ER 10/30 -on and off low grade fevers- recommend continuing Tamiflu renal dose 30mg total 5 doses after each HD session. 2. Community-acquired pneumonia -cont. Zithromax and ceftriaxone. -Bronchodilators as needed 3. Decompensated alcoholic liver cirrhosis with portal HTN/ ascites. -s/p paracentesis with 3.6 L ot, f/u fluid studies. -Monitor electrolyte levels. -HD for UF. In light of hyperkalemia, will hold off to Aldactone therapy. -Lactulose maintenance dose for prophylactic hepatic encephalopathy. -GI following. 4. ESRD on hemodialysis -Nephrology following and dialysis per nephrology team. -Monitor renal function. 5. Hyperkalemia with ESRD -stable -mgmt per nephro 6. Anemia of ESRD. -Stable H&H. -We will consider Epogen if indicated. 7. Pancytopenia w/splenomegaly/liver disease -Currently no indication for transfusion. -Monitor 8. Hypertension -Stable. Continue antihypertensives. DVT prophylaxis: SCDs PUD prophylaxis: Not indicated CODE STATUS: Full code Diet: Renal/2 g sodium diet. Disposition: Continue current medical management. Await for clinical improvement. Await fluid studies. Patient is seen in collaboration with Dr. Marin Result Diagram: 11/01/18 0506 11/01/18 0506 Results 24hrs Laboratory Tests Test 10/31/18 11:19 11/01/18 05:06 Body Fluid Type PARACENTHESIS Body Fluid Volume 1025.0 Body Fluid Color CORWIN Body Fluid Appearance HAZY Body Fluid WBC 176 Body Fluid RBC (Auto) 77512 Body Fluid Polynuclear WBCs (%) 13.6 Body Fluid Mononuclear Cells % Auto 86.4 Body Fluid Total Protein 3.6 Body Fluid Lactate Dehydrogenase 276 White Blood Count 5.3 # Red Blood Count 3.64 L Hemoglobin 10.5 L Hematocrit 32.4 L Mean Corpuscular Volume 89.0 Mean Corpuscular Hemoglobin 28.8 L Mean Corpuscular Hemoglobin Concent 32.4 Red Cell Distribution Width 15.3 H Platelet Count 100 #L Mean Platelet Volume 10.2 Immature Granulocytes % 0.400 Neutrophils % 85.5 H Lymphocytes % 7.8 L Monocytes % 6.3 Eosinophils % 0.0 Basophils % 0.0 Nucleated Red Blood Cells % 0.0 Immature Granulocytes # 0.020 Neutrophils # 4.5 Lymphocytes # 0.4 L Monocytes # 0.3 Eosinophils # 0.0 Basophils # 0.0 Nucleated Red Blood Cells # 0.0 Sodium Level 138 Potassium Level 4.8 Chloride Level 100 Carbon Dioxide Level 26 Anion Gap 12 # Blood Urea Nitrogen 65 H Creatinine 7.05 #H Est Glomerular Filtrat Rate mL/min 8 L Glucose Level 98 # Calcium Level 7.5 L Exam/Review of Systems Vital Signs Vitals Vital Signs Date Temp Pulse Resp B/P (MAP) Pulse Ox O2 O2 Flow FiO2 Time Delivery Rate 11/01/18 107 08:00 11/01/18 18 97 Nasal 21 07:41 Cannula 11/01/18 99.4 138/87 07:08 (104) Intake and Output 10/31/18 10/31/18 11/01/18 1515:00 23:00 07:00 IntakeIntake Total 960 ml 320 ml OutputOutput Total 2400 ml BalanceBalance -1440 ml 320 ml Medications Medications Current Medications Dextrose (D50w Syringe) ONCE PRN IV DECREASED GLUCOSE; Start 10/30/18 at 19:30 IV Flush (NS 3 ml) 3 ml PER PROTOCOL IV ; Start 10/31/18 at 00:00 Ondansetron HCl (Zofran Inj) 4 mg Q6H PRN IV NAUSEA AND/OR VOMITING; Start 10/31/18 at 00:00 Acetaminophen (Tylenol Tab) 650 mg Q6H PRN PO PAIN LEVEL 1-3 OR FEVER; Start 10/31/18 at 00:00 Acetaminophen/ Hydrocodone Bitart ([place] (5/325)) 1 tab Q6H PRN PO PAIN LEVEL 4-6; Start 10/31/18 at 00:00 Acetaminophen/ Hydrocodone Bitart ([place] (5/325)) 2 tab Q6H PRN PO PAIN LEVEL 7-10; Start 10/31/18 at 00:00 Albuterol/ Ipratropium (Duoneb) 3 ml Q2H RESP THERAPY PRN HHN SHORTNESS OF BREATH; Start 10/31/18 at 00:00 Carvedilol (Coreg) 12.5 mg BID PO Last administered on 11/01/18at 08:06; Admin Dose 12.5 MG; Start 10/31/18 at 09:00 Sevelamer Carbonate (Renvela) 0.8 gm WITH MEALS PO Last administered on 11/01/18at 08:04; Admin Dose 0.8 GM; Start 10/31/18 at 08:00 Ceftriaxone Sodium 50 ml @ 100 mls/hr Q24H IVPB Last administered on 10/31/18at 17:37; Admin Dose 100 MLS/HR; Start 10/31/18 at 18:00 Azithromycin 250 ml @ 250 mls/hr Q24H IVPB Last administered on 10/31/18at 18:20; Admin Dose 250 MLS/HR; Start 10/31/18 at 18:30 Lactulose (Enulose) 20 gm DAILY PO Last administered on 11/01/18at 08:05; Admin Dose 20 GM; Start 11/01/18 at 09:00 Prednisone (Prednisone) 20 mg DAILY PO Last administered on 11/01/18at 08:05; Admin Dose 20 MG; Start 10/31/18 at 10:30 Albuterol/ Ipratropium (Duoneb) 3 ml Q6H RESP THERAPY HHN Last administered on 11/01/18at 07:39; Admin Dose 3 ML; Start 10/31/18 at 14:00 JOSEPH KINCAID NP Nov 01, 2018 10:35
[2018-11-01] MEDS ORDERED: DILTIAZEM 25 MG INJ IV PRN (12:00)
--- NOTE | 2018-11-01 12:29 | CONS ---
Date/Time of Note Date/Time of Note DATE: 11/01/18 TIME: 12:05 Assessment/Plan Assessment/Plan Hospital Course Summary Assessment and Plan: Assessment: Decompensated alcoholic liver cirrhosis -s/p paracentesis 10/31/18 removed 3.6 L -Portal HTN -Splenomegaly -Thrombocytopenia -MELD 20 Influenza, Type A- in isolation CAP- on Zithromax Atrial Fibrillation ESRD on hemodialysis Hyperkalemia Normocytic anemia Hypertension Plan: Continue Lactulose Monitor labs Continue ABX per ID We will follow along during hospitalization. Patient seen in collaboration with Dr. Sims Result Diagram: 11/01/18 0506 11/01/18 0506 Results 24hrs Laboratory Tests Test 11/01/18 05:06 White Blood Count 5.3 # Red Blood Count 3.64 L Hemoglobin 10.5 L Hematocrit 32.4 L Mean Corpuscular Volume 89.0 Mean Corpuscular Hemoglobin 28.8 L Mean Corpuscular Hemoglobin Concent 32.4 Red Cell Distribution Width 15.3 H Platelet Count 100 #L Mean Platelet Volume 10.2 Immature Granulocytes % 0.400 Neutrophils % 85.5 H Lymphocytes % 7.8 L Monocytes % 6.3 Eosinophils % 0.0 Basophils % 0.0 Nucleated Red Blood Cells % 0.0 Immature Granulocytes # 0.020 Neutrophils # 4.5 Lymphocytes # 0.4 L Monocytes # 0.3 Eosinophils # 0.0 Basophils # 0.0 Nucleated Red Blood Cells # 0.0 Sodium Level 138 Potassium Level 4.8 Chloride Level 100 Carbon Dioxide Level 26 Anion Gap 12 # Blood Urea Nitrogen 65 H Creatinine 7.05 #H Est Glomerular Filtrat Rate mL/min 8 L Glucose Level 98 # Calcium Level 7.5 L CC: KARINA SIMS ; Consultation Date/Type/Reason Admit Date/Time Oct 30, 2018 at 19:19 Date of Consultation: Nov 01, 2018 Type of Consult GI Reason for Consultation Decompensated ALC Hx of Present Illness This is a 63-year-old male with PMH of hypertension, ESRD on HD, COPD, decompensated ALC with frequent paracentesis. He presented to the ED from out- pt office for increased SOB, cough, and wheezing. During hospitalization pt dx with Type A influenza, CAP, pt has been started on ABX. Consulted for GI regarding compensated alcoholic liver cirrhosis. Patient is awake alert oriented x3 with no signs of hepatic encephalopathy, patient states he feels much better post dialysis and paracentesis. He denies any overt signs of GI bleed. Patient states he has an appointment in 3-4 weeks to be evaluated at [facility] for transplant. Of note last EGD about 2 years ago, unsure of complete results. Review of Systems: A 12 system, review was conducted and is negative except as noted in the HPI or here. Past Medical History Medications Current Medications Dextrose (D50w Syringe) ONCE PRN IV DECREASED GLUCOSE; Start 10/30/18 at 19:30 IV Flush (NS 3 ml) 3 ml PER PROTOCOL IV ; Start 10/31/18 at 00:00 Ondansetron HCl (Zofran Inj) 4 mg Q6H PRN IV NAUSEA AND/OR VOMITING; Start 10/31/18 at 00:00 Acetaminophen (Tylenol Tab) 650 mg Q6H PRN PO PAIN LEVEL 1-3 OR FEVER; Start 10/31/18 at 00:00 Acetaminophen/ Hydrocodone Bitart (Caliente (5/325)) 1 tab Q6H PRN PO PAIN LEVEL 4-6; Start 10/31/18 at 00:00 Acetaminophen/ Hydrocodone Bitart (Caliente (5/325)) 2 tab Q6H PRN PO PAIN LEVEL 7-10; Start 10/31/18 at 00:00 Albuterol/ Ipratropium (Duoneb) 3 ml Q2H RESP THERAPY PRN HHN SHORTNESS OF BREATH; Start 10/31/18 at 00:00 Carvedilol (Coreg) 12.5 mg BID PO Last administered on 11/01/18at 08:06; Admin Dose 12.5 MG; Start 10/31/18 at 09:00 Sevelamer Carbonate (Renvela) 0.8 gm WITH MEALS PO Last administered on 11/01/18at 08:04; Admin Dose 0.8 GM; Start 10/31/18 at 08:00 Ceftriaxone Sodium 50 ml @ 100 mls/hr Q24H IVPB Last administered on 10/31/18at 17:37; Admin Dose 100 MLS/HR; Start 10/31/18 at 18:00 Azithromycin 250 ml @ 250 mls/hr Q24H IVPB Last administered on 10/31/18at 18:20; Admin Dose 250 MLS/HR; Start 10/31/18 at 18:30 Lactulose (Enulose) 20 gm DAILY PO Last administered on 11/01/18at 08:05; Admin Dose 20 GM; Start 11/01/18 at 09:00 Prednisone (Prednisone) 20 mg DAILY PO Last administered on 11/01/18at 08:05; Admin Dose 20 MG; Start 10/31/18 at 10:30; Stop 11/02/18 at 10:29 Albuterol/ Ipratropium (Duoneb) 3 ml Q6H RESP THERAPY HHN Last administered on 11/01/18at 07:39; Admin Dose 3 ML; Start 10/31/18 at 14:00 Diltiazem HCl (Cardizem) 30 mg Q8 PO ; Start 11/01/18 at 14:00 Diltiazem HCl (Cardizem Iv) 5 mg Q4H PRN IV HR>110 Hold SBP<100; Start 11/01/18 at 12:00 Allergies: Coded Allergies: No Known Drug Allergies (Verified Allergy, Unknown, 01/20/17) Social History Smoking Status: Never smoker Exam/Review of Systems Vital Signs Vitals Vital Signs Date Temp Pulse Resp B/P (MAP) Pulse Ox O2 O2 Flow FiO2 Time Delivery Rate 11/01/18 98.8 121 20 130/81 97 Room Air 11:14 (97) 11/01/18 21 07:41 Intake and Output 10/31/18 10/31/18 11/01/18 1515:00 23:00 07:00 IntakeIntake Total 960 ml 320 ml OutputOutput Total 2400 ml BalanceBalance -1440 ml 320 ml Exam PHYSICAL EXAMINATION: GENERAL: Alert & oriented x 3, in no acute distress SKIN: No lesions EYES: Pupils equal reactive to light, no discharge. EARS/NOSE AND THROAT: Ears normal, nose normal, oropharynx normal NECK: Supple CARDIOVASCULAR: Heart: Irregular rate and rhythm RESPIRATORY: Lungs clear to auscultation GASTROINTESTINAL AND LIVER: Abdomen: Soft, non tenderness, distended, no hernias, ascites, no guarding, no rebound tenderness, normoactive bowel sounds. Rectal: Deferred. EXTREMITIES: No cyanosis, clubbing or edema. Medications Medications Current Medications Dextrose (D50w Syringe) ONCE PRN IV DECREASED GLUCOSE; Start 10/30/18 at 19:30 IV Flush (NS 3 ml) 3 ml PER PROTOCOL IV ; Start 10/31/18 at 00:00 Ondansetron HCl (Zofran Inj) 4 mg Q6H PRN IV NAUSEA AND/OR VOMITING; Start 10/31/18 at 00:00 Acetaminophen (Tylenol Tab) 650 mg Q6H PRN PO PAIN LEVEL 1-3 OR FEVER; Start 10/31/18 at 00:00 Acetaminophen/ Hydrocodone Bitart (Caliente (5/325)) 1 tab Q6H PRN PO PAIN LEVEL 4-6; Start 10/31/18 at 00:00 Acetaminophen/ Hydrocodone Bitart (Caliente (5/325)) 2 tab Q6H PRN PO PAIN LEVEL 7-10; Start 10/31/18 at 00:00 Albuterol/ Ipratropium (Duoneb) 3 ml Q2H RESP THERAPY PRN HHN SHORTNESS OF BREATH; Start 10/31/18 at 00:00 Carvedilol (Coreg) 12.5 mg BID PO Last administered on 11/01/18 08:06; Admin Dose 12.5 MG; Start 10/31/18 at 09:00 Sevelamer Carbonate (Renvela) 0.8 gm WITH MEALS PO Last administered on 11/01/18 08:04; Admin Dose 0.8 GM; Start 10/31/18 at 08:00 Ceftriaxone Sodium 50 ml @ 100 mls/hr Q24H IVPB Last administered on 10/31/18at 17:37; Admin Dose 100 MLS/HR; Start 10/31/18 at 18:00 Azithromycin 250 ml @ 250 mls/hr Q24H IVPB Last administered on 10/31/18at 18:20; Admin Dose 250 MLS/HR; Start 10/31/18 at 18:30 Lactulose (Enulose) 20 gm DAILY PO Last administered on 11/01/18 08:05; Admin Dose 20 GM; Start 11/01/18 at 09:00 Prednisone (Prednisone) 20 mg DAILY PO Last administered on 11/01/18 08:05; Admin Dose 20 MG; Start 10/31/18 at 10:30; Stop 11/02/18 at 10:29 Albuterol/ Ipratropium (Duoneb) 3 ml Q6H RESP THERAPY HHN Last administered on 11/01/18at 07:39; Admin Dose 3 ML; Start 10/31/18 at 14:00 Diltiazem HCl (Cardizem) 30 mg Q8 PO ; Start 11/01/18 at 14:00 Diltiazem HCl (Cardizem Iv) 5 mg Q4H PRN IV HR>110 Hold SBP<100; Start 11/01/18 at 12:00 FLOR BURNS Nov 01, 2018 12:15
--- NOTE | 2018-11-01 13:15 | CONS ---
DATE OF ADMISSION: 10/30/2018 DATE OF CONSULTATION: 11/01/2018 TYPE OF CONSULTATION: Cardiology. REASON FOR CONSULTATION: Atrial fibrillation with rapid ventricular response. REQUESTING PHYSICIAN: Rylee Kincaid NP, from the hospitalist service. HISTORY OF PRESENT ILLNESS: Mr. Peterson is a 63-year-old male with history of hypertension, end- stage renal disease on hemodialysis, COPD, alcoholic liver cirrhosis, [facility] with complaints of shortness of breath, wheezing, cough, muscle aches. Upon arrival initially, temperature was 97.5, blood pressure 165/105, pulse 119, respiratory rate 2 1, satting 97%. The patient's labs showed white blood cell count 5.1, hemoglobin 10.9, platelet coun t of 83, sodium 140, potassium 6.0, creatinine 9.1, BUN of 83, AST 31, ALT 26, BNP of greater than 17 5,000, INR of 1. The patient underwent a chest x-ray revealing atherosclerosis of the thoracic aorta . Findings are compatible with left-sided pneumonia, cardiomegaly. Abdominal pelvic CT revealing he patic cirrhosis, portal hypertension and patchy opacities with partially visualized bilateral lungs a nd is undergoing a paracentesis -3.6 liters of fluid yesterday. [facility] and since admit to the floor has been placed on isolation. The patient has been treated with broad -spectrum antibiotics. He was given Tamiflu, which he is off at this time. The patient has been mon itored on telemetry revealing atrial fibrillation with rapid ventricular response. PAST MEDICAL HISTORY: As above in HPI. MEDICATIONS CURRENTLY IN HOSPITAL: 1. Lactulose. 2. Azithromycin. 3. Ceftriaxone. 4. DuoNeb. 5. Prednisone 10 mg daily. 6. Carvedilol 12.5 mg p.o. b.i.d. 7. Renvela. ALLERGIES: NO KNOWN DRUG ALLERGIES. SOCIAL HISTORY: No current tobacco, EtOH or illicit drug use. FAMILY HISTORY: No sudden cardiac or early CAD. REVIEW OF SYSTEMS: As above in HPI. CONSTITUTIONAL: No fevers, chills. PULMONARY: Positive shortness breath. CARDIOVASCULAR: Atrial fibrillation with rapid ventricular response. GASTROINTESTINAL: No vomiting. GENITOURINARY: No hematuria. MUSCULOSKELETAL: Degenerative joint disease. PSYCHIATRIC: The patient has depression. NEUROLOGIC: No documented history of CVA. ENDOCRINE: No documented history of diabetes mellitus. PHYSICAL EXAMINATION: VITAL SIGNS: Temperature of 98.8, blood pressure 130/81, pulse 121, respiratory rate 20, satting 97% on room air. GENERAL: The patient is alert, awake, in no acute distress. NECK: JVP is approximately 8 to 9 cm of water. CHEST: Fair air movement throughout. HEART: Irregularly irregular, I/ systolic murmur. ABDOMEN: Positive bowel sounds, soft. EXTREMITIES: No significant pitting edema, 1+ pulses bilateral posterior tibial. LABORATORY DATA: Most recently from today, sodium 138, potassium 4.8, creatinine 7.0, BUN of 65. Wh ite blood cell count 5.3, hemoglobin 10.5, platelet count of 100. IMAGING STUDIES: As above in HPI. No further imaging studies for my review at this time. ELECTROCARDIOGRAM: Revealing atrial fibrillation with rapid ventricular response, rate of 111 with n ormal axis and normal intervals and nonspecific ST-T wave abnormalities. IMPRESSION: 1. Atrial fibrillation with rapid ventricular response. 2. Hypertension, under reasonable control. 3. Abnormal electrocardiogram, assess for acute coronary syndrome. 4. Influenza A, status post Tamiflu. 5. Possible healthcare-associated pneumonia. 6. Alcoholic liver cirrhosis, status post recent paracentesis. 7. End-stage renal disease, on hemodialysis. 8. Hyperkalemia, improved, status post hemodialysis, anemia. 9. Pancytopenia. RECOMMENDATIONS: 1. At this time, we would maintain the patient on telemetry monitoring to follow rhythm and rate lady sely. 2. Continue the patient's carvedilol for now and we will add a calcium channel antonio, diltiazem in attempt to improve overall systolic blood pressure control. 3. Continue the patient's antibiotics, follow up all culture data. 4. Continue the patient's current steroids, bronchodilators. 5. Continue to follow the patient's respiratory status closely. 6. Check a 2D echo to further assess the patient's ejection fraction, wall motion and any major valv e abnormalities. 7. Check a TSH to be ensure subclinical hyperthyroid is not contributing to bouts of tachyarrhythmia . 8. Continue hemodialysis for volume removal. Thank you for allowing me to take part in the care of this patient. I will continue to follow him ve ry closely with you with further recommendations to be made as the [facility]. Dictated By: BRISEIDA OLSEN/SHARLA Conf#: [id number] DID#: [id number] CC: SAMMI ALBERT DO; CLINT SHEN MD; RYLEE KINCAID FERMENTATION MANAGER;*EndCC*
[2018-11-01] MEDS: DILTIAZEM 30 MG TAB PO SCH ×2 (14:23→20:21)
--- NOTE | 2018-11-01 14:27 | RADRPT ---
Echocardiogram Report Patient Name: KAREN GARY Gender: Male Date: 1955 Study Date: 01-Nov-2018 Regional Liaison: Kate Manzo [facility] Location: [address] Ref. Physician: BRISEIDA BULLOCK Quality: Adequate Procedures: Transthoracic echocardiogram with complete 2D, M-Mode, and doppler examination. Indications: Atrial Flutter. 2D/M Mode Doppler Measurement Value Normal Ranges Measurement Value Normal Ranges LVIDd 2D 5.1 3.5 - 5.6 cm AV Peak Alen 2.2 m/sec LVIDs 2D 4.0 2.1 - 4.1 cm AV Peak PG 19.0 mmHg LVPWd 2D 1.1 0.6 - 1.1 cm LVOT Peak Alen 1.4 m/sec IVSd 2D 1.2 0.6 - 1.1 cm LVOT Peak PG 8.0 mmHg AoR Diam 2D 2.9 2.0 - 3.7 cm TR Peak Alen 3.8 m/sec LA/Ao 2D 1 0 - 1 TR Peak PG 57.0 mmHg LA Dimen 2D 4.3 2.3 - 4.0 cm RVSP 72.0 mmHg RA Pressure 15.0 Findings Left Ventricle: Normal left ventricular cavity size. Mild concentric left ventricular hypertrophy. Moderate global left ventricular systolic dysfunction. Ejection fraction is visually estimated at 3035 %. Tissue Doppler/Mitral Doppler indices are indeterminate in this study due to the presence of atrial flutter. Right Ventricle: Normal right ventricular size. Normal right ventricular systolic function. Left Atrium: There is mild enlargement of left atrium. Right Atrium: The right atrium is normal in size. Mitral Valve: Mitral valve leaflets appear mildly thickened. Mild mitral annular calcification. Mild mitral valve regurgitation. Aortic Valve: Aortic valve Max velocity 2.16 m/sec. Max PG 19.00 mmHg. Aortic sclerosis without significant stenosis. Trace aortic valve regurgitation. Tricuspid Valve: Normal appearance of the tricuspid valve. Estimated peak PA systolic pressure 72 mmHg. There is moderate to severe tricuspid regurgitation. Pulmonic Valve: Normal pulmonic valve appearance. Pericardium: Normal pericardium with no significant pericardial effusion. Aorta: Normal aortic root. IVC: Dilated IVC without respiratory collapse consistent with elevated right atrial pressure. Conclusions Normal left ventricular cavity size. Mild concentric left ventricular hypertrophy. Moderate global left ventricular systolic dysfunction. Ejection fraction is visually estimated at 30-35 %. Tissue Doppler/Mitral Doppler indices are indeterminate in this study due to the presence of atrial flutter. There is mild enlargement of left atrium. Mitral valve leaflets appear mildly thickened. Mild mitral annular calcification. Mild mitral valve regurgitation. Aortic sclerosis without significant stenosis. Trace aortic valve regurgitation. Normal appearance of the tricuspid valve. Estimated peak PA systolic pressure 72 mmHg. There is moderate to severe tricuspid regurgitation. Electronically Signed By: Briseida Bullock 01-Nov-2018 14:26:37 -0800 Patient Name: KAREN GARY Study Date: 01-Nov-2018 [id number]
[2018-11-01] MEDS ORDERED: OSELTAMIVIR 30 MG CAP PO SCH (14:30)
[2018-11-01] MEDS: CEFTRIAXONE 1 GM/50 ML (PMX) 50 ML IVPB SCH (17:31)
[2018-11-01] MEDS: AZITHROMYCIN 500MG/NS (PMX) 250 ML IVPB SCH (18:05)
[2018-11-02] VITALS (26 sets, daily range): BP systolic 100–171; BP diastolic 72–100; PULSE 73–104; RESP 16–20
[2018-11-02] MEDS: ALBUTEROL/IPRATROPIUM (NEB) 3 ML AMP HHN SCH ×4 (01:33→22:02)
[2018-11-02] MEDS: DILTIAZEM 30 MG TAB PO SCH ×3 (05:30→21:37)
--- NOTE | 2018-11-02 07:38 | NUR ---
NURSE'S NOTES: Pt resting comfortably with stable VS; ambulatory with steady gait. Denies any discomfort. Kept clean and comfortable. Call light in reach. Hourly rounding done. Instructed on TCDB. Alfredo notified regarding Hemodialysis order. Spoke to Sathya with confirmation number: [id number]. All needs anticipated and attended promptly.
[2018-11-02] MEDS: SEVELAMER CARBONATE 0.8 GM PKT PO SCH ×3 (08:34→17:44)
[2018-11-02] MEDS: predniSONE 20 MG TAB PO SCH (08:34)
[2018-11-02] MEDS: LACTULOSE 30ML CUP PO SCH (08:34)
--- NOTE | 2018-11-02 09:00 | PN ---
DATE: 11/02/2018 SUBJECTIVE: The patient is stable, no events overnight. OBJECTIVE: VITAL SIGNS: Blood pressure is 131/97, pulse 85, respiration 18, temperature 98.5. HEENT: Head is normocephalic. NECK: Supple. HEART: Regular rate. LUNGS: Show diminished breath sounds at the base. ABDOMEN: Soft, nontender to palpation. No rebound or guarding. EXTREMITIES: Negative for clubbing, cyanosis, no edema. DERMATOLOGIC: No rashes. MUSCULOSKELETAL: No joint effusion. NEUROLOGIC: No change in exam. MEDICATIONS: The patient's medications have been reviewed. LABORATORY DATA: Pending. ASSESSMENT AND PLAN: 1. End-stage renal disease. The patient is scheduled for dialysis today. We will dialyze for 3 deangelo rs 2k bath, calcium 2.5, ultrafiltrate as tolerated. 2. Hyperkalemia. Patient is on dialysis. Continue low-potassium bath. 3. Anemia. Monitor hemoglobin and hematocrit levels. Will give Epogen as needed. 4. Mineral bone disorder, monitor calcium and phosphorus levels. 5. Cirrhosis, decompensated. The patient is status post paracentesis. Continue medical management. Follow up with GI. 6. Arrhythmia. Continue current treatment plan. Follow up with cardiology. 7. Sepsis secondary to influenza. Continue antibiotics. Continue Tamiflu. 8. Chronic obstructive pulmonary disease exacerbation. Continue medical management. 9. Hypertension. Continue current blood pressure regimen. 10. Pancytopenia, possibly due to splenic sequestration due to cirrhosis. Continue to monitor. Dictated By: SAMMI MARTINEZ/SHARLA Conf#: [id number] DID#: [id number] CC: CLINT SHEN MD;*EndCC*
--- NOTE | 2018-11-02 10:18 | PDOCDIS ---
Discharge Instructions CONDITION [id number] Patient Condition: [id number] Stable HOME CARE INSTRUCTIONS: [id number] Special Diet: [id number] Renal diet FOLLOW UP/APPOINTMENTS Follow-up Plan Follow-up with Dr. Bullock in 2 weeks. [address] [place] [address] Office [address] [place] [address] Office Follow-up with outpatient hemodialysis clinic and chief operator lock tender for next dialysis session. Follow-up with primary care physician in 1 week JOSEPH IKNCAID NP Nov 02, 2018 10:18
[2018-11-02] MEDS ORDERED: DILT30TA30 PO (10:20)
[2018-11-02] MEDS ORDERED: AZIT500T3 PO (10:20)
--- NOTE | 2018-11-02 10:33 | DS ---
Date/Time of Note Date/Time of Note DATE: 11/02/18 TIME: 10:26 Discharge Summary Admission/Discharge Info Admit Date/Time Oct 30, 2018 at 19:19 Discharge Date/Time Discharge Diagnosis 1. Influenza A.resolved 2. Community-acquired pneumonia 3. Decompensated alcoholic liver cirrhosis with portal HTN/ ascites.-s/p paracentesis with 3.6 L 4. ESRD on hemodialysis 5. Hyperkalemia with ESRD.resolved 6. Anemia of ESRD. 7. Pancytopenia w/splenomegaly/liver disease 8. Hypertension 9. Systolic congestive heart failure, compensated 10. Pulmonary hypertension. Patient Condition: Stable Consults Dr. Bullock, syrup blender Procedures 10/30/2018. Chest x-ray. IMPRESSION: 1. Atherosclerosis of the thoracic aorta. 2. Findings compatible with left-sided pneumonia, probably in the superior segment of the left lower lobe. 3. Cardiomegaly without evidence of overt congestive failure. 10/31/2018. CT abdomen and pelvis. 1. Hepatic cirrhosis. 2. Portal hypertension as evidence by splenomegaly and moderate volume ascites. 3. Patchy opacities of the partially visualized bilateral lungs, concerning for pneumonia or other infiltrate. 4. Bilateral atrophic kidneys. 10/31/2018. PROCEDURE performed: IMPRESSION: Successful paracentesis under sonographic guidance. A total of 3600 cc of fluid was drained. 11/01/2018. 2D echocardiogram. Conclusions Normal left ventricular cavity size. Mild concentric left ventricular hypertrophy. Moderate global left ventricular systolic dysfunction. Ejection fraction is visually estimated at 30-35 %. Tissue Doppler/Mitral Doppler indices are indeterminate in this study due to the presence of atrial flutter. There is mild enlargement of left atrium. Mitral valve leaflets appear mildly thickened. Mild mitral annular calcification. Mild mitral valve regurgitation. Aortic sclerosis without significant stenosis. Trace aortic valve regurgitation. Normal appearance of the tricuspid valve. Estimated peak PA systolic pressure 72 mmHg. There is moderate to severe tricuspid regurgitation. Electronically Signed By: Aleksey Bullock 01-Nov-2018 14:26:37 -0800 Hospital Course 63-year-old male with a history of decompensated alcoholic liver cirrhosis, ascites, weekly paracentesis, ESRD on hemodialysis, was brought in with subjective fevers, nonproductive cough, shortness of breath and wheezing times 3-day duration. Patient was positive for influenza A and he was given a loading dose of Tamiflu 150 in the ER. He was continued on hemodialysis. He was also noted for a community-acquired pneumonia pneumonia for which he responded to Zithromax and ceftriaxone with PRN bronchodilators. He was also given a tapering dose of steroids to help him recuperate faster from the flu infection. She was then given another dose of Tamiflu after his dialysis session. A repeat influenza swab was negative. Patient with no further pneumonia symptoms. No fevers, no leukocytosis. At that point, he does not require any further Tamiflu therapy secondary to his renal function and dialysis status. Patient was noted for abdominal distention with decompensated alcoholic liver cirrhosis with portal hypertension and ascites. Patient was continued on ultrafiltration for fluid removal and in light of hyperkalemia, he is not a candidate for any Aldactone therapy. He had ultrasound-guided paracentesis with 3.6 L of fluid out. Patient's initial Gram stain and pulmonary cultures negative for any bacteremia. A fungal culture is pending at this time. Patient with no abdominal signs. He was tolerating diet and activities well. There was no ammonia intoxication. Hyperkalemia resolved. Patient's hemoglobin, platelets count remained normal without any need for transfusion. He was continued on Epogen for anemia of ESRD. Patient's hospital stay was noted for atrial fibrillation and was unsure whether this is acute or chronic in nature. Patient's 2D echocardiogram showed systolic heart failure with ejection fraction 30-35% with pulmonary artery hypertension. He had cardiology evaluation and he was continued on beta- blockers with addition of Cardizem. Again, for fluid balance, he was continued on ultrafiltration. Patient's clinical status remained compensated. Rate control achieved. In light of advanced liver disease and coagulopathy is, patient is not a candidate for anticoagulation as outpatient. We will put him on baby aspirin for prophylaxis. At this time, patient is feeling back to his normal. He wanted to be discharged. We will have a close monitoring of his final fluid studies although it appears to be negative to date. As such, it is reasonable to send him home as he appears medically stable with stable labs and vital signs. We will discharge patient on 2 more days on Zithromax for course completion. Patient to follow-up with Dr. Bullock in 2 weeks and his hemodialysis/travel registered nurse nicu for next dialysis sessions. Patient verbalized discharge instructions. Approximately 60 minutes was spent on coordinating the discharge on this pat ient. Patient was seen in collaboration with Dr. aMrin. Home Meds Active Scripts Azithromycin* (Zithromax*) 500 Mg Tablet, 500 MG PO DAILY for 2 Days, #2 TAB Prov:KINCAID,JOSEPH V. DAMAGE CUTTER 11/02/18 Diltiazem Hcl* (Cardizem*) 30 Mg Tablet, 30 MG PO Q8, #90 TAB Prov:KINCAID,JOSEPH V. DAMAGE CUTTER 11/02/18 Reported Medications Sevelamer Carbonate* (Renvela*) 0.8 Gm Powd.pack, 0.8 GM PO WITH MEALS, PACKET 08/24/18 Carvedilol* (Coreg*) 12.5 Mg Tablet, 12.5 MG PO BID, #60 TAB 01/20/17 Follow-up Plan Follow-up with Dr. Bullock in 2 weeks. [address] [place] [address] Office [address] [place] [address] Office Follow-up with outpatient hemodialysis clinic and travel registered nurse nicu for next dialysis session. Follow-up with primary care physician in 1 week Primary Care Provider Not On Staff Doctor Pending Labs Laboratory Tests Test 11/01/18 12:31 11/01/18 18:22 11/02/18 00:31 11/02/18 05:14 Creatine 129 120 105 Kinase IU/L (23-200) IU/L (23-200) IU/L (23-200) Creatine Kinase 1.4 1.4 1.8 Index Creatinine 1.80 1.70 1.90 Kinase MB ng/ml (0.0-2.4) ng/ml (0.0-2.4 ng/ml (0.0-2.4 (Mass) ) ) Troponin I < 0.012 < 0.012 0.014 ng/ml (0.000-0. ng/ml (0.000-0 ng/ml (0.000-0 120) .120) .120) Thyroid 1.310 Stimulating MIU/L (0.465-4. Hormone (TSH) 680) White Blood 3.8 Count 10^3/ul (4.8-1 0.8) Red Blood 3.45 Count 10^6/ul (4.70- 6.10) Hemoglobin 10.2 g/dl (14.0-18. 0) Hematocrit 30.4 % (42.0-52.0) Mean 88.1 Corpuscular fl (82.0-101.0 Volume ) Mean 29.6 Corpuscular pg (29.0-33.0) Hemoglobin Mean 33.6 Corpuscular g/dl (32.0-37. Hemoglobin Conc 0) ent Red Cell 15.1 Distribution % (11.5-14.5) Width Platelet Count 102 10^3/UL (140-4 15) Mean Platelet 10.4 Volume fl (7.4-10.4) Immature 0.500 Granulocytes % % (0.001-0.429 ) Neutrophils % 80.5 % (39.0-77.0) Lymphocytes % 12.0 % (15.0-51.0) Monocytes % 7.0 % (0.0-11.0) Eosinophils % 0.0 % (0.0-7.0) Basophils % 0.0 % (0.0-2.0) Nucleated Red 0.0 Blood Cells % /100WBC (0.0-0 .0) Immature 0.020 Granulocytes # 10^3/ul (0.0-0 .031) Neutrophils # 3.1 10^3/ul (1.6-7 .5) Lymphocytes # 0.5 10^3/ul (0.8-2 .9) Monocytes # 0.3 10^3/ul (0.3-0 .9) Eosinophils # 0.0 10^3/ul (0.0-0 .5) Basophils # 0.0 10^3/ul (0.0-0 .1) Nucleated Red 0.0 Blood Cells # 10^3/ul (0.0-0 .0) Sodium Level 136 mmol/L (135-14 4) Potassium 4.7 Level mmol/L (3.5-5. 1) Chloride Level 99 mmol/L (97-110 ) Carbon Dioxide 23 Level mmol/L (21-31) Anion Gap 14 (5-13) Blood Urea 91 Nitrogen mg/dl (7-20) Creatinine 8.73 mg/dl (0.61-1. 24) Est Glomerular 6 mL/min (>60) Filtrat Rate mL/min Glucose Level 103 mg/dl (70-220) Calcium Level 6.8 mg/dl (8.4-10. 2) Magnesium 2.3 Level mg/dl (1.7-2.5 ) Microbiology Date/Time Source Procedure Growth Status 11/01/18 11:45 Nasopharyngeal Influenza Types A,B Direct EIA - Final Complete JOSEPH KINCAID V. DAMAGE CUTTER Nov 02, 2018 10:33
[2018-11-02] MEDS ORDERED: ASPI-817 PO (10:35)
--- NOTE | 2018-11-02 12:31 | CONS ---
Date/Time of Note Date/Time of Note DATE: 11/02/18 TIME: 12:28 Assessment/Plan Assessment/Plan Hospital Course IMPRESSION: 1. Atrial fibrillation with rapid ventricular response-now rate controlled. 2. Hypertension, under reasonable control. 3. Abnormal electrocardiogram, assess for acute coronary syndrome. 4. Influenza A, status post Tamiflu. 5. Possible healthcare-associated pneumonia. 6. Alcoholic liver cirrhosis, status post recent paracentesis. 7. End-stage renal disease, on hemodialysis. 8. Hyperkalemia, improved, status post hemodialysis, anemia. 9. Pancytopenia. Recc: -Tele -serial ecg's -Contineu coreg/dilt -consider baby asa as tolerated only -outpatient f/u Result Diagram: 11/02/18 0514 11/02/18 0514 Results 24hrs Laboratory Tests Test 11/01/18 12:31 11/01/18 18:22 11/02/18 00:31 11/02/18 05:14 Creatine Kinase 129 120 105 Creatine Kinase Index 1.4 1.4 1.8 Creatinine Kinase MB 1.80 1.70 1.90 (Mass) Troponin I < 0.012 < 0.012 0.014 Thyroid Stimulating 1.310 Hormone (TSH) White Blood Count 3.8 #L Red Blood Count 3.45 L Hemoglobin 10.2 L Hematocrit 30.4 L Mean Corpuscular Volume 88.1 Mean Corpuscular 29.6 Hemoglobin Mean Corpuscular 33.6 Hemoglobin Concent Red Cell Distribution 15.1 H Width Platelet Count 102 L Mean Platelet Volume 10.4 Immature Granulocytes % 0.500 H Neutrophils % 80.5 H Lymphocytes % 12.0 L Monocytes % 7.0 Eosinophils % 0.0 Basophils % 0.0 Nucleated Red Blood 0.0 Cells % Immature Granulocytes # 0.020 Neutrophils # 3.1 Lymphocytes # 0.5 L Monocytes # 0.3 Eosinophils # 0.0 Basophils # 0.0 Nucleated Red Blood 0.0 Cells # Sodium Level 136 Potassium Level 4.7 Chloride Level 99 Carbon Dioxide Level 23 Anion Gap 14 H Blood Urea Nitrogen 91 H Creatinine 8.73 H Est Glomerular Filtrat 6 L Rate mL/min Glucose Level 103 Calcium Level 6.8 L Magnesium Level 2.3 Consultation Date/Type/Reason Admit Date/Time Oct 30, 2018 at 19:19 Initial Consult Date 11/01/18 Type of Consult cardiology Reason for Consultation AF Requesting Provider: JOSEPH KINCAID V. CHANNEL EXECUTIVE Exam/Review of Systems Vital Signs Vitals Vital Signs Date Temp Pulse Resp B/P (MAP) Pulse Ox O2 O2 Flow FiO2 Time Delivery Rate 11/02/18 98.6 96 18 142/88 98 11:03 (106) 11/02/18 21 08:08 11/01/18 Room Air 11:14 Intake and Output 11/01/18 11/01/18 11/02/18 1515:00 23:00 07:00 IntakeIntake Total 400 ml 400 ml BalanceBalance 400 ml 400 ml Exam Review of Systems: CONSTITUTIONAL: No fevers, chills. PULMONARY: No sob CARDIOVASCULAR: No chest pain/palpitations GASTROINTESTINAL: No nausea/vomiting. GENITOURINARY: No hematuria/dysuria. MUSCULOSKELETAL: No myagias/arthalgias. PSYCHIATRIC: The patient denies depression. NEUROLOGIC: No weakness Constitutional: alert, oriented Psych: no complaints Head: normocephalic ENMT: mucosa pink and moist Neck: supple, jvd Respiratory: diminished breath sounds (at bases/B) Cardiovascular: regular rate and rhythm Gastrointestinal: soft, non-tender Musculoskeletal: muscle tone (normal) Extremities: edema (none) Medications Medications Current Medications Dextrose (D50w Syringe) ONCE PRN IV DECREASED GLUCOSE; Start 10/30/18 at 19:30 IV Flush (NS 3 ml) 3 ml PER PROTOCOL IV ; Start 10/31/18 at 00:00 Ondansetron HCl (Zofran Inj) 4 mg Q6H PRN IV NAUSEA AND/OR VOMITING; Start 10/31/18 at 00:00 Acetaminophen (Tylenol Tab) 650 mg Q6H PRN PO PAIN LEVEL 1-3 OR FEVER; Start 10/31/18 at 00:00 Acetaminophen/ Hydrocodone Bitart ([place] (5/325)) 1 tab Q6H PRN PO PAIN LEVEL 4-6; Start 10/31/18 at 00:00 Acetaminophen/ Hydrocodone Bitart ([place] (5/325)) 2 tab Q6H PRN PO PAIN LEVEL 7-10; Start 10/31/18 at 00:00 Albuterol/ Ipratropium (Duoneb) 3 ml Q2H RESP THERAPY PRN HHN SHORTNESS OF BREATH; Start 10/31/18 at 00:00 Carvedilol (Coreg) 12.5 mg BID PO Last administered on 11/01/18 20:21; Admin Dose 12.5 MG; Start 10/31/18 at 09:00 Sevelamer Carbonate (Renvela) 0.8 gm WITH MEALS PO Last administered on 11/02/18 11:56; Admin Dose 0.8 GM; Start 10/31/18 at 08:00 Ceftriaxone Sodium 50 ml @ 100 mls/hr Q24H IVPB Last administered on 11/01/18 17:31; Admin Dose 100 MLS/HR; Start 10/31/18 at 18:00 Azithromycin 250 ml @ 250 mls/hr Q24H IVPB Last administered on 11/01/18 18:05; Admin Dose 250 MLS/HR; Start 10/31/18 at 18:30 Lactulose (Enulose) 20 gm DAILY PO Last administered on 11/02/18 08:34; Admin Dose 20 GM; Start 11/01/18 at 09:00 Albuterol/ Ipratropium (Duoneb) 3 ml Q6H RESP THERAPY HHN Last administered on 11/02/18 08:09; Admin Dose 3 ML; Start 10/31/18 at 14:00 Diltiazem HCl (Cardizem) 30 mg Q8 PO Last administered on 11/02/18 05:30; Admin Dose 30 MG; Start 11/01/18 at 14:00 Diltiazem HCl (Cardizem Iv) 5 mg Q4H PRN IV HR>110 Hold SBP<100; Start 11/01/18 at 12:00 BRISEIDA CHOU Nov 02, 2018 12:31
[2018-11-02] MEDS: CEFTRIAXONE 1 GM/50 ML (PMX) 50 ML IVPB SCH (17:44)
--- NOTE | 2018-11-02 18:28 | NUR ---
EOSS: Pt stable, about to start dialysis then will be discharged once done. No acute events. All needs attended. Will endorse to oncoming shift accordingly.
[2018-11-02] MEDS: AZITHROMYCIN 500MG/NS (PMX) 250 ML IVPB SCH (18:30)
--- NOTE | 2018-11-02 19:40 | RADRPT ---
Vent Rate: 83 bpm RR Interval: 0 msec KS Interval: 0 msec QRS Duration: 90 msec QT Interval: 412 msec QTC Interval: 484 msec P-R-T [place]: 0 - 84 - 78 degrees Atrial fibrillation with a competing junctional pacemaker Prolonged QT Abnormal ECG Electronically Signed By: Dimitri Theodore [id number]
--- NOTE | 2018-11-02 23:50 | NUR ---
PT WITH DC ORDER AFTER HD. PT VERBALIZED THAT HE IS NOT FEELING WELL AFTER DIALYSIS AND INSISTED TO STAY FOR THE NIGHT. MADE CHARGE NURSE AND DR SHEN AWARE. DR SHEN MADE AN ORDER TO HOLD DC TILL TOMORROW MORNING. WILL CONTINUE TO MONITOR
[2018-11-03] VITALS: PULSE 80
[2018-11-03] MEDS: ALBUTEROL/IPRATROPIUM (NEB) 3 ML AMP HHN SCH ×2 (02:15→08:57)
[2018-11-03 04:00] VITALS: PULSE 66
[2018-11-03 04:38] VITALS: BP 133/91; PULSE 88; RESP 18
[2018-11-03] MEDS: DILTIAZEM 30 MG TAB PO SCH (05:57)
--- NOTE | 2018-11-03 06:00 | NUR ---
PT IS COMPLAINING OF DIZZINESS THIS MORNING BUT DENIES THE NEED FOR ANY MEDICATION. VSS. ALL NEEDS ATTENDED. WILL ENDORSE TO AM SHIFT FOR CONTINUITY OF CARE
[2018-11-03 07:45] VITALS: BP 141/84; PULSE 75; RESP 18
[2018-11-03] MEDS: LACTULOSE 30ML CUP PO SCH (09:00)
[2018-11-03 09:03] VITALS: PULSE 81
[2018-11-03] MEDS: SEVELAMER CARBONATE 0.8 GM PKT PO SCH ×2 (09:15→12:23)
--- NOTE | 2018-11-03 09:45 | PN ---
Date/Time of Note Date/Time of Note DATE: 11/03/18 TIME: 09:41 Assessment/Plan VTE Prophylaxis Risk score (from Nsg)>0 risk: 2 SCD applied (from Ns): No SCD contraindicated: other Pharmacological prophylaxis: other Lines/Catheters [facility]from [facility] [place] Urinary Cath still in place: No Assessment/Plan Hospital Course renal follow up d/w Dr Fernandez SUBJECTIVE: The patient is stable, no events overnight. last hd was yesterday (1200 removed) no n, v, chest pain, dyspnea OBJECTIVE: HEENT: Head is normocephalic. NECK: Supple. HEART: Regular rate. LUNGS: Show diminished breath sounds at the base. ABDOMEN: Soft, nontender to palpation. No rebound or guarding. EXTREMITIES: Negative for clubbing, cyanosis, no edema. DERMATOLOGIC: No rashes. MUSCULOSKELETAL: No joint effusion. NEUROLOGIC: No change in exam. MEDICATIONS: The patient's medications have been reviewed. LABORATORY DATA: reviewed ASSESSMENT AND PLAN: 1. End-stage renal disease. The patient is scheduled for dialysis in am. 2. Hyperkalemia. Patient is on dialysis. Continue low-potassium bath. 3. Anemia. Monitor hemoglobin and hematocrit levels. Will give Epogen as needed. 4. Mineral bone disorder, monitor calcium and phosphorus levels. 5. Cirrhosis, decompensated. The patient is status post paracentesis. Continue medical management. Follow up with GI. 6. Arrhythmia. Continue current treatment plan. Follow up with cardiology. 7. Sepsis secondary to influenza. Continue antibiotics. Continue Tamiflu. 8. Chronic obstructive pulmonary disease exacerbation. Continue medical management. 9. Hypertension. Continue current blood pressure regimen. 10. Pancytopenia, possibly due to splenic sequestration due to cirrhosis. Con tinue to monitor. Result Diagram: 11/02/18 0514 11/02/18 0514 Exam/Review of Systems Vital Signs Vitals Vital Signs Date Temp Pulse Resp B/P (MAP) Pulse Ox O2 O2 Flow FiO2 Time Delivery Rate 11/03/18 81 09:03 11/03/18 18 96 21 08:57 11/03/18 98.8 141/84 Room Air 07:45 (103) Intake and Output 11/02/18 11/02/18 11/03/18 1515:00 23:00 07:00 IntakeIntake Total 1200 ml 400 ml OutputOutput Total 1200 ml BalanceBalance 0 ml 400 ml Medications Medications Current Medications Dextrose (D50w Syringe) ONCE PRN IV DECREASED GLUCOSE; Start 10/30/18 at 19:30 IV Flush (NS 3 ml) 3 ml PER PROTOCOL IV ; Start 10/31/18 at 00:00 Ondansetron HCl (Zofran Inj) 4 mg Q6H PRN IV NAUSEA AND/OR VOMITING; Start 10/31/18 at 00:00 Acetaminophen (Tylenol Tab) 650 mg Q6H PRN PO PAIN LEVEL 1-3 OR FEVER; Start 10/31/18 at 00:00 Acetaminophen/ Hydrocodone Bitart ([place] (5/325)) 1 tab Q6H PRN PO PAIN LEVEL 4-6; Start 10/31/18 at 00:00 Acetaminophen/ Hydrocodone Bitart ([place] (5/325)) 2 tab Q6H PRN PO PAIN LEVEL 7-10; Start 10/31/18 at 00:00 Albuterol/ Ipratropium (Duoneb) 3 ml Q2H RESP THERAPY PRN HHN SHORTNESS OF BREATH; Start 10/31/18 at 00:00 Carvedilol (Coreg) 12.5 mg BID PO Last administered on 11/03/18 09:16; Admin Dose 12.5 MG; Start 10/31/18 at 09:00 Sevelamer Carbonate (Renvela) 0.8 gm WITH MEALS PO Last administered on 11/03/18 09:15; Admin Dose 0.8 GM; Start 10/31/18 at 08:00 Ceftriaxone Sodium 50 ml @ 100 mls/hr Q24H IVPB Last administered on 11/02/18 17:44; Admin Dose 100 MLS/HR; Start 10/31/18 at 18:00 Azithromycin 250 ml @ 250 mls/hr Q24H IVPB Last administered on 11/01/18 18:05; Admin Dose 250 MLS/HR; Start 10/31/18 at 18:30 Lactulose (Enulose) 20 gm DAILY PO Last administered on 11/02/18 08:34; Admin Dose 20 GM; Start 11/01/18 at 09:00 Albuterol/ Ipratropium (Duoneb) 3 ml Q6H RESP THERAPY HHN Last administered on 11/03/18 08:57; Admin Dose 3 ML; Start 10/31/18 at 14:00 Diltiazem HCl (Cardizem) 30 mg Q8 PO Last administered on 11/03/18at 05:57; Admin Dose 30 MG; Start 11/01/18 at 14:00 Diltiazem HCl (Cardizem Iv) 5 mg Q4H PRN IV HR>110 Hold SBP<100; Start 11/01/18 at 12:00 DESTINEE GUIDRY DO Nov 03, 2018 09:45
--- NOTE | 2018-11-03 10:48 | DS ---
Date/Time of Note Date/Time of Note DATE: 11/03/18 TIME: 10:47 Discharge Summary Admission/Discharge Info Admit Date/Time Oct 30, 2018 at 19:19 Discharge Date/Time Discharge Diagnosis 1. Influenza A.resolved 2. Community-acquired pneumonia 3. Decompensated alcoholic liver cirrhosis with portal HTN/ ascites.-s/p paracentesis with 3.6 L 4. ESRD on hemodialysis 5. Hyperkalemia with ESRD.resolved 6. Anemia of ESRD. 7. Pancytopenia w/splenomegaly/liver disease 8. Hypertension 9. Systolic congestive heart failure, compensated 10. Pulmonary hypertension. Consults Dr. Bullock, croze cutter helper Procedures 10/30/2018. Chest x-ray. IMPRESSION: 1. Atherosclerosis of the thoracic aorta. 2. Findings compatible with left-sided pneumonia, probably in the superior segment of the left lower lobe. 3. Cardiomegaly without evidence of overt congestive failure. 10/31/2018. CT abdomen and pelvis. 1. Hepatic cirrhosis. 2. Portal hypertension as evidence by splenomegaly and moderate volume ascites. 3. Patchy opacities of the partially visualized bilateral lungs, concerning for pneumonia or other infiltrate. 4. Bilateral atrophic kidneys. 10/31/2018. PROCEDURE performed: IMPRESSION: Successful paracentesis under sonographic guidance. A total of 3600 cc of fluid was drained. 11/01/2018. 2D echocardiogram. Conclusions Normal left ventricular cavity size. Mild concentric left ventricular hypertrophy. Moderate global left ventricular systolic dysfunction. Ejection fraction is visually estimated at 30-35 %. Tissue Doppler/Mitral Doppler indices are indeterminate in this study due to the presence of atrial flutter. There is mild enlargement of left atrium. Mitral valve leaflets appear mildly thickened. Mild mitral annular calcification. Mild mitral valve regurgitation. Aortic sclerosis without significant stenosis. Trace aortic valve regurgitation. Normal appearance of the tricuspid valve. Estimated peak PA systolic pressure 72 mmHg. There is moderate to severe tricuspid regurgitation. Electronically Signed By: [facility] Course 63-year-old male with a history of decompensated alcoholic liver cirrhosis, ascites, weekly paracentesis, ESRD on hemodialysis, was brought in with subjective fevers, nonproductive cough, shortness of breath and wheezing times 3-day duration. Patient was positive for influenza A and he was given a loading dose of Tamiflu 150 in the ER. He was continued on hemodialysis. He was also noted for a community-acquired pneumonia pneumonia for which he responded to Zithromax and ceftriaxone with PRN bronchodilators. He was also given a tapering dose of steroids to help him recuperate faster from the flu infection. She was then given another dose of Tamiflu after his dialysis session. A repeat influenza swab was negative. Patient with no further pneumonia symptoms. No fevers, no leukocytosis. At that point, he does not require any further Tamiflu therapy secondary to his renal function and dialysis status. Patient was noted for abdominal distention with decompensated alcoholic liver cirrhosis with portal hypertension and ascites. Patient was continued on ultrafiltration for fluid removal and in light of hyperkalemia, he is not a candidate for any Aldactone therapy. He had ultrasound-guided paracentesis with 3.6 L of fluid out. Patient's initial Gram stain and pulmonary cultures negative for any bacteremia. A fungal culture is pending at this time. Patient with no abdominal signs. He was tolerating diet and activities well. There was no ammonia intoxication. Hyperkalemia resolved. Patient's hemoglobin, platelets count remained normal without any need for transfusion. He was continued on Epogen for anemia of ESRD. Patient's hospital stay was noted for atrial fibrillation and was unsure whether this is acute or chronic in nature. Patient's 2D echocardiogram showed systolic heart failure with ejection fraction 30-35% with pulmonary artery hypertension. He had cardiology evaluation and he was continued on beta- blockers with addition of Cardizem. Again, for fluid balance, he was continued on ultrafiltration. Patient's clinical status remained compensated. Rate control achieved. In light of advanced liver disease and coagulopathy is, patient is not a candidate for anticoagulation as outpatient. We will put him on baby aspirin for prophylaxis. At this time, patient is feeling back to his normal. He wanted to be discharged. We will have a close monitoring of his final fluid studies although it appears to be negative to date. As such, it is reasonable to send him home as he appears medically stable with stable labs and vital signs. We will discharge patient on 2 more days on Zithromax for course completion. Patient to follow-up with Dr. Bullock in 2 weeks and his hemodialysis/aeronautical project engineer for next dialysis sessions. Patient verbalized discharge instructions. Patient was supposed to be discharged on 11/02/2018 after hemodialysis, however he felt little dizzy after dialysis and was not feeling well to leave late at night. As such, discharge was held. This morning, he appears back to his baseline with no acute distress and stable for discharge. Approximately 60 minutes was spent on coordinating the discharge on this patient. Patient was seen in collaboration with Dr. BRIGITTE Hua Active Scripts Aspirin* (Aspirin* EC) 81 Mg Tablet.dr, 81 MG PO DAILY, #30 TAB Prov:JOSEPH KINCAID V. NUCLEAR ENGINEER 11/02/18 Azithromycin* (Zithromax*) 500 Mg Tablet, 500 MG PO DAILY for 2 Days, #2 TAB Prov:JOSEPH KINCAID V. NUCLEAR ENGINEER 11/02/18 Diltiazem Hcl* (Cardizem*) 30 Mg Tablet, 30 MG PO Q8, #90 TAB Prov:JOSEPH KINCAID V. NUCLEAR ENGINEER 11/02/18 Reported Medications Sevelamer Carbonate* (Renvela*) 0.8 Gm Powd.pack, 0.8 GM PO WITH MEALS, PACKET 08/24/18 Carvedilol* (Coreg*) 12.5 Mg Tablet, 12.5 MG PO BID, #60 TAB 01/20/17 Follow-up Plan Follow-up with Dr. Bullock in 2 weeks. [id number] [place] [address] Office [address] [place] [address] Office Follow-up with outpatient hemodialysis clinic and aeronautical project engineer for next dialysis session. Follow-up with primary care physician in 1 week Primary Care Provider Not On Staff Doctor JOSEPH KINCAID NP Nov 03, 2018 10:48
[2018-11-03 11:20] VITALS: BP 138/78; PULSE 74; RESP 18
--- NOTE | 2018-11-03 13:19 | NUR ---
RN NOTES: Called Dr. Asencio multiple times to verify HD order since pt was just dialyzed yesterday, no callback received. Notified Rylee FOOD CONSULTANT, stated to go ahead and discharge pt.
--- NOTE | 2018-11-03 14:10 | NUR ---
RN NOTES: Discharge packet discussed. IV removed cathlon intact. Left unit with all personal belongings. Provided pt with taxi voucher.
== END 2018-11-03 14:08 | disposition home or self-care (01) | DRG 871 ==
LOC: E/R 17:17 → 6WM 19:19
PROVIDERS: ADMIT Internal Medicine; ATTEND Internal Medicine
PROC: 0W9G3ZZ Drainage of Peritoneal Cavity, Percutaneous Approach (ICD-10-PCS; 2018-10-31)
PROC: 5A1D70Z Performance of Urinary Filtration, Intermittent, Less than 6 Hours Per Day (ICD-10-PCS; principal; 2018-11-02)
DX: A41.9 Sepsis, unspecified organism (principal); J10.00 Influenza due to other identified influenza virus with unspecified type of pneumonia; N18.6 End stage renal disease; D61.818 Other pancytopenia; K76.6 Portal hypertension; J44.0 Chronic obstructive pulmonary disease with (acute) lower respiratory infection; J44.1 Chronic obstructive pulmonary disease with (acute) exacerbation; I13.2 Hypertensive heart and chronic kidney disease with heart failure and with stage 5 chronic kidney disease, or end stage renal disease; I50.20 Unspecified systolic (congestive) heart failure; K70.31 Alcoholic cirrhosis of liver with ascites; I48.91 Unspecified atrial fibrillation; D69.6 Thrombocytopenia, unspecified; R16.1 Splenomegaly, not elsewhere classified; D63.1 Anemia in chronic kidney disease; E87.5 Hyperkalemia; Z99.2 Dependence on renal dialysis; R94.31 Abnormal electrocardiogram [ECG] [EKG]; I27.20 Pulmonary hypertension, unspecified
CPT/HCPCS: 36415; 71045; 74176; 80048; 80053; 82042; 82140; 82550; 82553; 82962; 83605; 83615; 83690; 83735; 83880; 84157; 84443; 84484; 85025; 85610; 85730; 87040; 87070; 87075; 87081; 87102; 87116; 87340; 87400; 88104; 88107; 88305; 89051; 90935; 93005; 93306; 94640; 94644; 94664; 96374; 96375; J0456; J0696; J1815; J1940; J2930; J7030; J7512

== ENCOUNTER 2019-02-26 18:12 | Emergency (ER) | payer MEDICARE, BC ==
[~2019-02-26] VITALS: Ht 167.6 cm; Wt 79.9 kg
[~2019-02-26 18:12] MED LIST changes: +ASPI-817 PO; +AZIT500T3 PO; +DILT30TA30 PO
[2019-02-26 18:34] VITALS: Ht 167.6 cm; Wt 79.9 kg
--- NOTE | 2019-02-26 20:02 | ERD ---
ER Documentation Chief Complaint Chief Complaint HX OF HERNIA; RLQ PAIN X3DAYS WITH N/V/D HPI 63-year-old male, with multiple medical problems, including end-stage renal disease on hemodialysis, cirrhosis with ascites, presents to the emergency department, complaining of right inguinal mass for more than 6 months. The patient states that occasionally is painful, but is easy to reduce. He would like to have a surgery for a hernia repair done. Otherwise, the patient denies fever, no chills, no nausea or vomiting. ROS All systems reviewed and are negative except as per history of present illness. Medications Home Meds Active Scripts Hydrocodone/Acetaminophen ([place] 5-325 Tablet) 1 Each Tablet, 1 TAB PO QHS PRN for PAIN, #7 TAB Prov:CM NESBITT MD 02/26/19 Aspirin* (Aspirin* EC) 81 Mg Tablet.dr, 81 MG PO DAILY, #30 TAB Prov:KINCA[employer]JOSEPH [employer] 11/02/18 Azithromycin* (Zithromax*) 500 Mg Tablet, 500 MG PO DAILY for 2 Days, #2 TAB Prov:KINCA[employer]JO[employer]PH [employer] 11/02/18 Diltiazem Hcl* (Cardizem*) 30 Mg Tablet, 30 MG PO Q8, #90 TAB Prov:KINCAIDJOSEPH [employer] 11/02/18 Reported Medications Sevelamer Carbonate* (Renvela*) 0.8 Gm Powd.pack, 0.8 GM PO WITH MEALS, PACKET 08/24/18 Carvedilol* (Coreg*) 12.5 Mg Tablet, 12.5 MG PO BID, #60 TAB 01/20/17 Allergies Allergies: Coded Allergies: No Known Drug Allergies (Verified Allergy, Unknown, 01/20/17) PMhx/Soc History of Surgery: Yes (fistula ,L upper arm) Anesthesia Reaction: No Hx Neurological Disorder: No Hx Respiratory Disorders: Yes (COPD) Hx Cardiac Disorders: Yes (HPN) Hx Psychiatric Problems: No Hx Miscellaneous Medical Probl: No Hx Alcohol Use: No Hx Substance Use: No Hx Tobacco Use: No FmHx Family History: diabetes; No coronary disease Physical Exam Vitals Vital Signs Date Temp Pulse Resp B/P (MAP) Pulse Ox O2 O2 Flow FiO2 Time Delivery Rate 02/26/19 98.2 82 16 160/84 98 Room Air 21:05 (109) 02/26/19 98.0 86 19 148/85 96 18:34 (106) Physical Exam Const: No acute distress Head: Atraumatic Eyes: Normal Conjunctiva ENT: Normal External Ears, Nose and Mouth. Neck: Full range of motion. No meningismus. Resp: Clear to auscultation bilaterally Cardio: Regular rate and rhythm, no murmurs Abd: Abdomen with significant ascites but non tender. 10 x 10 cm inguinal hernia easily reduced, no evidence of strangulation or incarceration. Skin: No petechiae or rashes Back: No midline or flank tenderness Ext: No cyanosis, or edema Neur: Awake and alert Psych: Normal Mood and Affect Procedures/MDM Vital signs stable. Differential diagnosis include but not limited to: UTI, colitis, gastroenteritis, kidney stones, irritable bowel syndrome, inflammatory bowel syndrome, malabsorption syndrome, cholelithiasis, food intolerance, medication side effect, pancreatitis, diverticulitis, bowel obstruction. Physical examination and clinical presentation consistent most likely with right inguinal hernia without evidence of incarceration or strangulation and ascites. During the ED course the patient remained stable, no new complaints. Treatment options and clinical impression discussed with the patient who agrees with management. The patient is stable to be treated outpatient and will be discharged home; some side effects of prescribed medications (headache, rash, nausea, vomiting, diarrhea, drowsiness, habituation, bleeding, hypertension, interactions with other medications) were reviewed. The patient was informed that the evaluation in the emergency department has been done to rule out an acute emergency, therefore, chronic conditions like malignancy or other diseases have not been evaluated; therefore, the patient was instructed to follow up with the primary care provider in the next 48h. If symptoms persist, worsen or new symptoms develop, then patient should return to the ED immediately. Instructions explained and given directly by me to the patient with acknowledgment and demonstrated understanding. Disclaimer: Inadvertent spelling and grammatical errors are likely due to EHR/dictation software use and do not reflect on the overall quality of patient care. Also, please note that the electronic time recorded on this note does not necessarily reflect the actual time of the patient encounter. Departure Diagnosis: Primary Impression: Reducible right inguinal hernia Additional Impression: Ascites Condition: Stable Additional Instructions: Thank you very much for allowing us to participate in your care. Your health and safety is our top priority at [facility]. The evaluation in the emergency department has been done to rule out an acute emergency, therefore, chronic conditions like malignancy or other diseases have not been evaluated; therefore, you need to follow up with a primary care provider in the next 48h. If symptoms persist, worsen or new symptoms develop, then patient should return to the ED immediately. If you persist with abdominal tension, you may return tomorrow at 7am to the ER to coordinate an ultrasound-guided paracentesis which will help with your symptoms. Call your primary care doctor TOMORROW for an appointment during the next 2-4 days and bring all the information provided. Have prescriptions filled and follow precisely the directions on the label. If the symptoms get worse and your provider is unavailable, return to the Emergency Department immediately. . CM NESBITT MD Feb 26, 2019 20:02
[2019-02-26] MEDS ORDERED: HYDR-4011 PO (20:53)
[2019-02-26 21:05] VITALS: BP 160/84; PULSE 82; RESP 16
== END 2019-02-26 21:07 | disposition home or self-care (01) ==
LOC: FTE 18:12
DX: K40.90 Unilateral inguinal hernia, without obstruction or gangrene, not specified as recurrent (principal); R18.8 Other ascites; J44.9 Chronic obstructive pulmonary disease, unspecified; I10 Essential (primary) hypertension; Z79.82 Long term (current) use of aspirin
CPT/HCPCS: 99283